=== PATIENT | male | born 1980 | race Caucasian/White ===

== ENCOUNTER 2017-10-29 12:23 | Inpatient (IN) | payer OTHER ==
[2017-10-29 13:09] VITALS: BMI 51.7
--- NOTE | 2017-10-29 15:04 | HP ---
CIWA Score - CIWA Score Nausea/Vomitin-Mild Nausea/No Vomiting Muscle Tremors: 4-Moderate,w/Arms Extend Anxiety: 3 Agitation: 2 Paroxysmal Sweats: 1-Minimal Palms Moist Orientation: 0-Oriented Tacttile Disturbances: 1-Very Mild Itch/Numbness Auditory Disturbances: 0-None Visual Disturbances: 0-None Headache: 0-None Present CIWA-Ar Total Score: 12 Admission ROS BHS - HPI Chief Complaint: withdrawal sx banzo Allergies/Adverse Reactions: Allergies Allergy/AdvReac Type Severity Reaction Status Date / Time No Known Allergies Allergy Verified 10/29/17 15:20 History of Present Illness: 37 years old male with long history of benzo nicotine dependence has chf, left upper and lower tooth removed 10/28/17 asthma copd and depression is admitted to detox Exam Limitations: No Limitations - Ebola screening Have you traveled outside of the country in the last 21 days: No Have you had contact with anyone from an Ebola affected area: No Have you been sick,other than usual withdrawal symptoms: No Do you have a fever: No - Review of Systems Constitutional: Changes in sleep, Weight Stable EENT: reports: No Symptoms Reported Respiratory: reports: SOB with Exertion, Productive cough Cardiac: reports: No Symptoms Reported GI: reports: Nausea, Poor Fluid Intake, Abdominal cramping : reports: No Symptoms Reported Musculoskeletal: reports: Back Pain, Joint Pain, Muscle Pain, Neck Pain Integumentary: reports: No Symptoms Reported Neuro: reports: Tremors Endocrine: reports: No Symptoms Reported Hematology: reports: No Symptoms Reported Psychiatric: reports: Judgement Intact, Orientated x3, Depressed Other Systems: Reviewed and Negative Patient History - Patient Medical History Hx Anemia: No Hx Asthma: Yes Hx Chronic Obstructive Pulmonary Disease (COPD): Yes Hx Cancer: No Hx Cardiac Disorders: No Hx Congestive Heart Failure: Yes Hx Hypertension: No Hx Hypercholesterolemia: No Hx Pacemaker: No HX Cerebrovascular Accident: No Hx Seizures: No Hx Dementia: No Hx Diabetes: No Hx Gastrointestinal Disorders: No Hx Liver Disease: No Hx Genitourinary Disorders: No Hx Sexually Transmitted Disorders: No Hx Renal Disease (ESRD): No Hx Thyroid Disease: No Hx Human Immunodeficiency Virus (HIV): No Hx Hepatitis C: No Hx Depression: No Hx Suicide Attempt: No Hx Bipolar Disorder: Yes Hx Schizophrenia: No - Patient Surgical History Past Surgical History: Yes Hx Neurologic Surgery: No Hx Cataract Extraction: No Hx Cardiac Surgery: No Hx Lung Surgery: No Hx Breast Surgery: No Hx Breast Biopsy: No Hx Abdominal Surgery: No Hx Appendectomy: No Hx Cholecystectomy: No Hx Genitourinary Surgery: No Hx Orthopedic Surgery: Yes (left ) Anesthesia Reaction: No - PPD History Previous Implant?: Yes Documented Results: Negative w/o proof Implanted On Prior [facility] Admission?: No PPD to be Administered?: Yes - Smoking Cessation Smoking history: Current every day smoker Have you smoked in the past 12 months: Yes Aproximately how many cigarettes per day: 20 Cigars Per Day: 0 Hx Chewing Tobacco Use: No Initiated information on smoking cessation: Yes 'Breaking Loose' booklet given: 10/29/17 - Substance & Tx. History Hx Alcohol Use: No Hx Substance Use: Yes Substance Use Type: Opiates, Tranquilizers Hx Substance Use Treatment: Yes (2016 [facility]) Family Disease History - Family Disease History Family Disease History: Respiratory: Father Other Family History: only one in [place] Admission Physical Exam S - Vital Signs Vital Signs: Vital Signs - 24 hr 10/29/17 12:58 Temperature 98.1 F Pulse Rate 84 Respiratory 18 Rate Blood Pressure 139/76 - Physical General Appearance: Yes: Appropriately Dressed, Mild Distress, Obese, Tremorous , Irritable, Sweating, Anxious HEENTM: Yes: Hearing grossly Normal, Normocephalic, Normal Voice Respiratory: Yes: Chest Non-Tender, No Respiratory Distress, No Accessory Muscle Use, Wheezing, Hyperresonant, Inspiration Neck: Yes: Supple, Trachea in good position Breast: Yes: Breasts Symetrical, No Discharge Cardiology: Yes: Regular Rhythm, Regular Rate, S1, S2 Abdominal: Yes: Normal Bowel Sounds, Non Tender, Flat Genitourinary: Yes: Within Normal Limits Back: Yes: Normal Inspection Musculoskeletal: Yes: full range of Motion, Gait Steady, Back pain, Muscle Pain Extremities: Yes: Normal Inspection, Normal Range of Motion, Non-Tender, Tremors Neurological: Yes: Fully Oriented, Alert, Motor Strength 5/5, Normal Response, Depressed Affect Integumentary: Yes: Warm Lymphatic: Yes: Within Normal Limits - Diagnostic (1) Sedative, hypnotic or anxiolytic dependence with withdrawal, uncomplicated Current Visit: Yes Status: Acute (2) Encounter for monitoring Suboxone maintenance therapy Current Visit: Yes Status: Acute Comment: case discussed with suboxon provider begin suboxone 12 mg - 3 mg 10/30/17 (3) CHF (congestive heart failure) Current Visit: Yes Status: Chronic Qualifiers: Heart failure type: other Qualified Code(s): I50.9 - Heart failure, unspecified (4) Asthma Current Visit: Yes Status: Chronic Qualifiers: Asthma severity: mild Asthma persistence: intermittent Asthma complication type: with status asthmaticus Qualified Code(s): J45.22 - Mild intermittent asthma with status asthmaticus (5) COPD (chronic obstructive pulmonary disease) Current Visit: Yes Status: Chronic Qualifiers: COPD type: emphysema Emphysema type: other Qualified Code(s): J43.8 - Other emphysema (6) Bipolar II disorder Current Visit: Yes Status: Suspected (7) [place] teeth removed Current Visit: Yes Status: Acute Qualifiers: Tooth loss class: unspecified tooth loss Qualified Code(s): K08.409 - Partial loss of teeth, unspecified cause, unspecified class Comment: left upper and lower tooth removed 10/28/17 Cleared for Admission BHS - Detox or Rehab [facility] Level of Care: Medically Managed Detox Regimen/Protocol: Valium [facility] Breath Alcohol Content Breath Alcohol Content: 0 Urine Drug Screen - Control Is Test Valid: Yes - Results Drug Screen Negative: No Urine Drug Screen Results: OPI-Opiates, BZO-Benzodiazepines
[2017-10-29] MEDS ORDERED: guaiFENesin/D-METHORPHAN HB 10 ML UNIT-DOSE CUPS PO PRN (15:32)
[2017-10-29] MEDS ORDERED: P-EPHED 60MG/TRIPROLIDI 2.5MG TABLET PO PRN (15:32)
[2017-10-29] MEDS ORDERED: LOPERAMIDE HCL 2 MG CAPSULE PO PRN (15:32)
[2017-10-29] MEDS ORDERED: MAGNESIUM HYDROX 2400MG/30ML ORAL SUSPENSION 30 ML CUP PO PRN (15:32)
[2017-10-29] MEDS ORDERED: NICOTINE POLACRILEX 4 MG GUM BC PRN (15:32)
[2017-10-29] MEDS ORDERED: MAGNESIUM CITRATE 300 ML BOTTLE PO PRN (15:32)
[2017-10-29] MEDS ORDERED: MENTHOL/PHENOL 1 EACH UD MM PRN (15:32)
[2017-10-29] MEDS ORDERED: ACETAMINOPHEN 325 MG TABLET (FP) PO PRN (15:32)
[2017-10-29] MEDS ORDERED: MAG HYDROX/AL HYDROX/SIMETH 30 ML UNIT-DOSE CUP PO PRN (15:32)
[2017-10-29] MEDS ORDERED: ALBUTEROL SO4 18 GM HFA INHALER IH PRN (15:36)
[2017-10-29] MEDS ORDERED: diazePAM 5 MG TABLET PO ONE (16:45)
[2017-10-29] MEDS: NICOTINE 21 MG/24 HOURS TOPICAL PATCH TD SCH (17:24)
[2017-10-29 18:26] LABS: HEMATOCRIT 40.8 % (35.4-49); HEMOGLOBIN 13.6 GM/dL (11.7-16.9); MCH 30.8 pg (25.7-33.7); MCHC 33.3 g/dl (32.0-35.9); MEAN CELL VOLUME 92.5 fl (80-96); MEAN PLT VOLUME 9.3 fl (7.5-11.1); PLATELET COUNT 341 K/MM3 (134-434); RBC 4.41 M/mm3 (4.00-5.60); RDW 14.3 % (11.9-15.9); WHITE BLOOD COUNT 7.7 K/mm3 (4.0-10.0)
[2017-10-29 18:41] LABS: ALBUMIN 3.7 g/dl (3.4-5.0); ALK PHOS 80 U/L (45-117); ANION GAP 4 (8-16); BILIRUBIN,TOTAL 0.2 mg/dL (0.2-1.0); BLOOD UREA NITROGEN 20 mg/dL (7-18); CALCIUM 9.1 mg/dL (8.5-10.1); CHLORIDE 104 mmol/L (98-107); CO2 33 mmol/L (21-32); GLUCOSE,RANDOM 102 mg/dL (74-106); POTASSIUM 4.2 mmol/L (3.5-5.1); SGOT/AST 15 U/L (15-37); SODIUM 141 mmol/L (136-145)
[2017-10-29 18:42] LABS: CREATININE 0.9 mg/dL (0.7-1.3); SGPT/ALT 25 U/L (12-78); TOT PROT 7.4 g/dl (6.4-8.2)
[2017-10-29] MEDS ORDERED: MELATONIN 5 MG TABLETS PO PRN (22:00)
[2017-10-29] MEDS: GABAPENTIN 400 MG CAPSULE (FP) PO SCH (22:27)
[2017-10-29] MEDS: diazePAM 5 MG TABLET PO SCH (22:27)
[2017-10-29] MEDS: MONTELUKAST NA 10 MG TABLET PO SCH (22:27)
[2017-10-29] MEDS: BUDESONIDE/FORMETEROL FUMARATE 80/4.5 mcg INHALER IH SCH (22:27)
[2017-10-29] MEDS: THIAMINE HCL 100 MG TABLET (FP) PO SCH (22:27)
[2017-10-29] MEDS: IBUPROFEN 400 MG TABLET (FP) PO SCH (22:28)
[2017-10-30] MEDS: diazePAM 5 MG TABLET PO SCH ×3 (05:43→22:30)
[2017-10-30] MEDS: IBUPROFEN 400 MG TABLET (FP) PO SCH ×3 (05:44→22:30)
--- NOTE | 2017-10-30 09:42 | CONSULT ---
[facility] Psychiatric Consult - Data Date of interview: 10/30/17 Admission source: [facility] Identifying data: Patient is a 37 year old single male, father of two, unemployed (not receiving financial assistance), and currently lives with cousin. This is patient's first admission to [facility]. Pt. admitted to for opioid and benzodiazepine dependence. Substance Abuse History: Following information confirmed with Mr. Newberry: Smoking Cessation. Smoking history: Current every day smoker. Have you smoked in the past 12 months: Yes. Aproximately how many cigarettes per day: 20. Cigars Per Day: 0. Hx Chewing Tobacco Use: No. Initiated information on smoking cessation: Yes. 'Breaking Loose' booklet given: 10/29/17. - Substance & Tx. History. Hx Alcohol Use: No. Hx Substance Use: Yes. Substance Use Type : Opiates, Tranquilizers. Hx Substance Use Treatment: Yes (2016 [facility]) Medical History: Asthma, CHF, COPD Psychiatric History: Patient reports three psychiatric hospitalization, most recently at [facility] 2 years ago. OPD is provided by the [facility]. Pt. is prescribed abilify 5mg and depakote (unkown dose) BID. Pt. reports nonadherece to the depakote. Self reports diagnosis of depression/bipolar disorder. Pt. denies h/o suicide attempt. Physical/Sexual Abuse/Trauma History: Denies. Mental Status Exam - Mental Status Exam Alert and Oriented to: Time, Place, Person Cognitive Function: Good Patient Appearance: Well Groomed Mood: Euthymic Affect: Mood Congruent Patient Behavior: Fatigued, Cooperative Speech Pattern: Appropriate Voice Loudness: Moderately Soft/Quiet Thought Process: Goal Oriented Thought Disorder: Not Present Hallucinations: Denies Suicidal Ideation: Denies Homicidal Ideation: Denies Insight/Judgement: Poor Sleep: Fair Appetite: Fair Muscle strength/Tone: Normal Gait/Station: Normal Psychiatric Findings - Problem List ([place] 1, 2,3) (1) Opioid dependence Current Visit: Yes Status: Acute (2) Substance induced mood disorder Current Visit: Yes Status: Acute (3) Sedative, hypnotic or anxiolytic dependence with withdrawal, uncomplicated Current Visit: Yes Status: Acute (4) Encounter for monitoring Suboxone maintenance therapy Current Visit: Yes Status: Acute Comment: case discussed with suboxon provider begin suboxone 12 mg - 3 mg 10/30/17 - Initial Treatment Plan Initial Treatment Plan: Psychoeducation provided. Detoxification in progress. Abilify 5mg PO daily. Benefits and side effects discussed. Verbal consent given. Will continue to monitor.
[2017-10-30] MEDS ORDERED: BUPRENORPHINE HCL/NALOXONE 12 MG-3 MG SL FILM PACKET SL SCH (10:00)
[2017-10-30] MEDS: GABAPENTIN 400 MG CAPSULE (FP) PO SCH ×2 (10:11→22:31)
[2017-10-30] MEDS: BUDESONIDE/FORMETEROL FUMARATE 80/4.5 mcg INHALER IH SCH ×2 (10:11→22:30)
[2017-10-30] MEDS: PRENATAL VITAMINS W/ FOLIC ACID TABLET (FP) PO SCH (10:11)
[2017-10-30] MEDS: FUROSEMIDE 40 MG TABLET (FP) PO SCH (10:11)
[2017-10-30] MEDS: diazePAM 5 MG TABLET PO PRN (10:11)
[2017-10-30] MEDS: BUPRENORPHINE HCL/NALOXONE 12 MG-3 MG SL FILM PACKET SL SCH (10:11)
[2017-10-30] MEDS: NICOTINE 21 MG/24 HOURS TOPICAL PATCH TD SCH (10:12)
--- NOTE | 2017-10-30 11:32 | EKG ---
Test Reason : Blood Pressure : / mmHG Vent. Rate : 078 BPM Atrial Rate : 078 BPM P-R Int : 144 ms QRS Dur : 080 ms QT Int : 382 ms P-R-T Axes : 052 026 035 degrees QTc Int : 435 ms NORMAL SINUS RHYTHM NORMAL ECG NO PREVIOUS ECGS AVAILABLE Confirmed by JOSEMANUEL CALDERÓN MD ([id number]) on 10/30/2017 11:31:38 AM Referred By: Confirmed By:JOSEMANUEL CALDERÓN MD
[2017-10-30] MEDS: ARIPiprazole 5 MG TABLET (FP) PO SCH (12:08)
--- NOTE | 2017-10-30 12:48 | PN ---
S CIWA - CIWA Score Nausea/Vomitin-No Nausea/No Vomiting Muscle Tremors: 4-Moderate,w/Arms Extend Anxiety: 2 Agitation: 3 Paroxysmal Sweats: 3 Orientation: 0-Oriented Tacttile Disturbances: 0-None Auditory Disturbances: 2-Mild Harshness/Frighten Visual Disturbances: 3-Moderate Sensitivity Headache: 0-None Present CIWA-Ar Total Score: 17 BHS Progress Note (SOAP) Subjective: Tremors, Sweating, Body Aches, Fatigue. Objective: PATIENT A & O X 3. NO ACUTE DISTRESS. 10/30/17 12:47 Vital Signs Temperature 97.4 F L 10/30/17 09:22 Pulse Rate 86 10/30/17 09:22 Respiratory Rate 20 10/30/17 09:22 Blood Pressure 116/76 10/30/17 09:22 O2 Sat by Pulse Oximetry (%) Laboratory Tests 10/29/17 10/29/17 10/29/17 15:00 15:00 15:00 WBC 7.7 RBC 4.41 Hgb 13.6 Hct 40.8 MCV 92.5 MCH 30.8 MCHC 33.3 RDW 14.3 Plt Count 341 MPV 9.3 Sodium 141 Potassium 4.2 Chloride 104 Carbon Dioxide 33 H Anion Gap 4 L BUN 20 H Creatinine 0.9 Creat Clearance w eGFR > 60 Random Glucose 102 Calcium 9.1 Total Bilirubin 0.2 AST 15 ALT 25 Alkaline Phosphatase 80 Total Protein 7.4 Albumin 3.7 Valproic Acid 49.756 L RPR Titer 10/29/17 15:00 WBC RBC Hgb Hct MCV MCH MCHC RDW Plt Count MPV Sodium Potassium Chloride Carbon Dioxide Anion Gap BUN Creatinine Creat Clearance w eGFR Random Glucose Calcium Total Bilirubin AST ALT Alkaline Phosphatase Total Protein Albumin Valproic Acid RPR Titer Nonreactive LABS NOTED. UA RESULTS PENDING. 10/30/17 12:50 Assessment: 10/30/17 12:47 WITHDRAWAL SYMPTOMS. Plan: CONTINUE DETOX. INCREASE DAILY PO FLUID INTAKE.
[2017-10-30] MEDS: THIAMINE HCL 100 MG TABLET (FP) PO SCH (22:29)
[2017-10-30] MEDS: MONTELUKAST NA 10 MG TABLET PO SCH (22:31)
[2017-10-31] MEDS: diazePAM 5 MG TABLET PO PRN (06:03)
[2017-10-31] MEDS: IBUPROFEN 400 MG TABLET (FP) PO SCH ×3 (06:04→22:27)
[2017-10-31] MEDS: NICOTINE 21 MG/24 HOURS TOPICAL PATCH TD SCH (10:14)
[2017-10-31] MEDS: BUPRENORPHINE HCL/NALOXONE 12 MG-3 MG SL FILM PACKET SL SCH (10:14)
[2017-10-31] MEDS: PRENATAL VITAMINS W/ FOLIC ACID TABLET (FP) PO SCH (10:14)
[2017-10-31] MEDS: GABAPENTIN 400 MG CAPSULE (FP) PO SCH ×2 (10:14→22:27)
[2017-10-31] MEDS: ARIPiprazole 5 MG TABLET (FP) PO SCH (10:14)
[2017-10-31] MEDS: diazePAM 5 MG TABLET PO SCH ×2 (10:14→22:27)
[2017-10-31] MEDS: BUDESONIDE/FORMETEROL FUMARATE 80/4.5 mcg INHALER IH SCH ×2 (10:14→22:28)
[2017-10-31] MEDS: FUROSEMIDE 40 MG TABLET (FP) PO SCH (10:14)
--- NOTE | 2017-10-31 12:47 | PN ---
[facility] CIWA - CIWA Score Nausea/Vomitin-No Nausea/No Vomiting Muscle Tremors: 3 Anxiety: 3 Agitation: 2 Paroxysmal Sweats: 3 Orientation: 0-Oriented Tacttile Disturbances: 2-Mild Itch/Numbness/Burn Auditory Disturbances: 2-Mild Harshness/Frighten Visual Disturbances: 0-None Headache: 0-None Present CIWA-Ar Total Score: 15 BHS Progress Note (SOAP) Subjective: Tremors, Sweating, Body Aches, Fatigue. Objective: PATIENT A & O X 3, OBSERVED AMBULATING ON UNIT. NO ACUTE DISTRESS. 10/31/17 12:48 Vital Signs Temperature 96.2 F L 10/31/17 09:28 Pulse Rate 75 10/31/17 09:28 Respiratory Rate 18 10/31/17 09:28 Blood Pressure 116/72 10/31/17 09:28 O2 Sat by Pulse Oximetry (%) Laboratory Tests 10/29/17 10/29/17 10/29/17 15:00 15:00 15:00 WBC 7.7 RBC 4.41 Hgb 13.6 Hct 40.8 MCV 92.5 MCH 30.8 MCHC 33.3 RDW 14.3 Plt Count 341 MPV 9.3 Sodium 141 Potassium 4.2 Chloride 104 Carbon Dioxide 33 H Anion Gap 4 L BUN 20 H Creatinine 0.9 Creat Clearance w eGFR > 60 Random Glucose 102 Calcium 9.1 Total Bilirubin 0.2 AST 15 ALT 25 Alkaline Phosphatase 80 Total Protein 7.4 Albumin 3.7 Urine Color Urine Appearance Urine pH Ur Specific [place] Urine Protein Urine Glucose (UA) Urine Ketones Urine Blood Urine Nitrite Urine Bilirubin Urine Urobilinogen Ur Leukocyte Esterase Valproic Acid 49.756 L RPR Titer 10/29/17 10/29/17 15:00 15:00 WBC RBC Hgb Hct MCV MCH MCHC RDW Plt Count MPV Sodium Potassium Chloride Carbon Dioxide Anion Gap BUN Creatinine Creat Clearance w eGFR Random Glucose Calcium Total Bilirubin AST ALT Alkaline Phosphatase Total Protein Albumin Urine Color Cancelled Urine Appearance Cancelled Urine pH Cancelled Ur Specific [place] Cancelled Urine Protein Cancelled Urine Glucose (UA) Cancelled Urine Ketones Cancelled Urine Blood Cancelled Urine Nitrite Cancelled Urine Bilirubin Cancelled Urine Urobilinogen Cancelled Ur Leukocyte Esterase Cancelled Valproic Acid RPR Titer Nonreactive LABS NOTED. Assessment: 10/31/17 12:48 WITHDRAWAL SYMPTOMS. Plan: CONTINUE DETOX. INCREASE DAILY PO FLUID INTAKE.
[2017-10-31 18:30] LABS: URINE APPEARANCE CLEAR; URINE BILIRUBIN NEGATIVE (<2.0 mg/dL); URINE COLOR STRAW; URINE GLUCOSE (UA) NEGATIVE (NEGATIVE); URINE KETONE NEGATIVE (NEGATIVE); URINE LEUK ESTERASE NEGATIVE (NEGATIVE); URINE NITRITE NEGATIVE (NEGATIVE); URINE PROTEIN NEGATIVE (NEGATIVE); URINE UROBILINOGEN NEGATIVE mg/dL (0.2-1.0)
[2017-10-31] MEDS: MONTELUKAST NA 10 MG TABLET PO SCH (22:27)
[2017-10-31] MEDS: THIAMINE HCL 100 MG TABLET (FP) PO SCH (22:28)
[2017-11-01] MEDS: IBUPROFEN 400 MG TABLET (FP) PO SCH ×3 (06:18→22:28)
[2017-11-01] MEDS: BUDESONIDE/FORMETEROL FUMARATE 80/4.5 mcg INHALER IH SCH ×2 (10:34→22:29)
[2017-11-01] MEDS: GABAPENTIN 400 MG CAPSULE (FP) PO SCH ×2 (10:34→22:28)
[2017-11-01] MEDS: PRENATAL VITAMINS W/ FOLIC ACID TABLET (FP) PO SCH (10:34)
[2017-11-01] MEDS: ARIPiprazole 5 MG TABLET (FP) PO SCH (10:34)
[2017-11-01] MEDS: FUROSEMIDE 40 MG TABLET (FP) PO SCH (10:34)
[2017-11-01] MEDS: BUPRENORPHINE HCL/NALOXONE 12 MG-3 MG SL FILM PACKET SL SCH (10:35)
[2017-11-01] MEDS: NICOTINE 21 MG/24 HOURS TOPICAL PATCH TD SCH (10:35)
[2017-11-01] MEDS: diazePAM 5 MG TABLET PO SCH ×2 (10:35→22:28)
[2017-11-01] MEDS ORDERED: LIDOCAINE 5% TOPICAL PATCH TP SCH (11:00)
[2017-11-01] MEDS ORDERED: CYCLOBENZAPRINE HCL 10 MG TABLET (FP) PO PRN (11:52)
--- NOTE | 2017-11-01 16:36 | PN ---
BHS Progress Note (SOAP) Subjective: Sweating, Body Aches, Fatigue. Objective: PATIENT A & O X 3, OBSERVED AMBULATING ON UNIT. NO ACUTE DISTRESS. 11/01/17 16:35 Vital Signs Temperature 98.3 F 11/01/17 13:26 Pulse Rate 70 11/01/17 13:26 Respiratory Rate 20 11/01/17 13:26 Blood Pressure 103/54 11/01/17 13:26 O2 Sat by Pulse Oximetry (%) Laboratory Tests 10/29/17 10/29/17 10/29/17 15:00 15:00 15:00 WBC 7.7 RBC 4.41 Hgb 13.6 Hct 40.8 MCV 92.5 MCH 30.8 MCHC 33.3 RDW 14.3 Plt Count 341 MPV 9.3 Sodium 141 Potassium 4.2 Chloride 104 Carbon Dioxide 33 H Anion Gap 4 L BUN 20 H Creatinine 0.9 Creat Clearance w eGFR > 60 Random Glucose 102 Calcium 9.1 Total Bilirubin 0.2 AST 15 ALT 25 Alkaline Phosphatase 80 Total Protein 7.4 Albumin 3.7 Urine Color Urine Appearance Urine pH Ur Specific [place] Urine Protein Urine Glucose (UA) Urine Ketones Urine Blood Urine Nitrite Urine Bilirubin Urine Urobilinogen Ur Leukocyte Esterase Valproic Acid 49.756 L RPR Titer 10/29/17 10/29/17 10/31/17 15:00 15:00 14:20 WBC RBC Hgb Hct MCV MCH MCHC RDW Plt Count MPV Sodium Potassium Chloride Carbon Dioxide Anion Gap BUN Creatinine Creat Clearance w eGFR Random Glucose Calcium Total Bilirubin AST ALT Alkaline Phosphatase Total Protein Albumin Urine Color Cancelled Straw Urine Appearance Cancelled Clear Urine pH Cancelled 5.0 Ur Specific [place] Cancelled 1.008 Urine Protein Cancelled Negative Urine Glucose (UA) Cancelled Negative Urine Ketones Cancelled Negative Urine Blood Cancelled Negative Urine Nitrite Cancelled Negative Urine Bilirubin Cancelled Negative Urine Urobilinogen Cancelled Negative Ur Leukocyte Esterase Cancelled Negative Valproic Acid RPR Titer Nonreactive LABS NOTED. Assessment: 11/01/17 16:35 WITHDRAWAL SYMPTOMS. Plan: CONTINUE DETOX. INCREASE DAILY PO FLUID INTAKE.
[2017-11-01] MEDS ORDERED: LIDOCAINE PATCH REMOVAL MC SCH (22:00)
[2017-11-01] MEDS: MONTELUKAST NA 10 MG TABLET PO SCH (22:28)
[2017-11-01] MEDS: THIAMINE HCL 100 MG TABLET (FP) PO SCH (22:29)
[2017-11-02] MEDS: IBUPROFEN 400 MG TABLET (FP) PO SCH (05:56)
[2017-11-02 09:34] VITALS: BP 107/69; PULSE 75; TEMP 97.9
[2017-11-02] MEDS: BUPRENORPHINE HCL/NALOXONE 12 MG-3 MG SL FILM PACKET SL SCH (09:36)
[2017-11-02] MEDS: BUDESONIDE/FORMETEROL FUMARATE 80/4.5 mcg INHALER IH SCH (09:36)
[2017-11-02] MEDS: ARIPiprazole 5 MG TABLET (FP) PO SCH (09:36)
[2017-11-02] MEDS: PRENATAL VITAMINS W/ FOLIC ACID TABLET (FP) PO SCH (09:36)
[2017-11-02] MEDS: GABAPENTIN 400 MG CAPSULE (FP) PO SCH (09:36)
[2017-11-02] MEDS: FUROSEMIDE 40 MG TABLET (FP) PO SCH (09:36)
[2017-11-02] MEDS ORDERED: diazePAM 5 MG TABLET PO SCH (10:00)
--- NOTE | 2017-11-02 15:33 | DS ---
[facility] Detox Discharge Summary Admission Date: 10/29/17 Discharge Date: 11/02/17 - History Additional Comments: DETOX COMPLETED. ALERT O X 3. PT STATES HE WILL BE FOLLOWING [facility] AT WITH PMD/ [facility] [facility]. HAS OWN MEDS AT THE RESIDENCE. Pertinent Past History: PLEASE SEE DX BELOW - Physical Exam Results Vital Signs: Vital Signs Temperature 97.9 F 11/02/17 09:33 Pulse Rate 75 11/02/17 09:33 Respiratory Rate 18 11/02/17 09:33 Blood Pressure 107/69 11/02/17 09:33 O2 Sat by Pulse Oximetry (%) Pertinent Admission Physical Exam Findings: WITHDRAWAL SX Vital Signs 11/02/17 09:33 Temperature 97.9 F Pulse Rate 75 Respiratory 18 Rate Blood Pressure 107/69 Laboratory Tests 10/29/17 10/29/17 10/29/17 15:00 15:00 15:00 WBC 7.7 RBC 4.41 Hgb 13.6 Hct 40.8 MCV 92.5 MCH 30.8 MCHC 33.3 RDW 14.3 Plt Count 341 MPV 9.3 Sodium 141 Potassium 4.2 Chloride 104 Carbon Dioxide 33 H Anion Gap 4 L BUN 20 H Creatinine 0.9 Creat Clearance w eGFR > 60 Random Glucose 102 Calcium 9.1 Total Bilirubin 0.2 AST 15 ALT 25 Alkaline Phosphatase 80 Total Protein 7.4 Albumin 3.7 Urine Color Urine Appearance Urine pH Ur Specific [place] Urine Protein Urine Glucose (UA) Urine Ketones Urine Blood Urine Nitrite Urine Bilirubin Urine Urobilinogen Ur Leukocyte Esterase Valproic Acid 49.756 L RPR Titer 10/29/17 10/29/17 10/31/17 15:00 15:00 14:20 WBC RBC Hgb Hct MCV MCH MCHC RDW Plt Count MPV Sodium Potassium Chloride Carbon Dioxide Anion Gap BUN Creatinine Creat Clearance w eGFR Random Glucose Calcium Total Bilirubin AST ALT Alkaline Phosphatase Total Protein Albumin Urine Color Cancelled Straw Urine Appearance Cancelled Clear Urine pH Cancelled 5.0 Ur Specific [place] Cancelled 1.008 Urine Protein Cancelled Negative Urine Glucose (UA) Cancelled Negative Urine Ketones Cancelled Negative Urine Blood Cancelled Negative Urine Nitrite Cancelled Negative Urine Bilirubin Cancelled Negative Urine Urobilinogen Cancelled Negative Ur Leukocyte Esterase Cancelled Negative Valproic Acid RPR Titer Nonreactive - Treatment Hospital Course: Detox Protocol Followed - Medication Discharge Medications: Ambulatory Orders Albuterol Sulfate Inhaler - [Ventolin Hfa Inhaler -] 2 inh PO Q4H PRN 10/29/17 Aripiprazole [Abilify -] 15 mg PO DAILY 10/29/17 Budesonide/Formeterol Fumarate [SYMBICORT 80/4.5mcg -] 1 inh PO BID 10/29/17 Buprenorphine HCl/Naloxone HCl [Suboxone 12 mg-3 mg Sl Film] 1 each SL DAILY 08/17 Divalproex Sodium 500 mg PO BID 10/29/17 Furosemide [Lasix -] 40 mg PO DAILY 10/29/17 Gabapentin [Neurontin -] 400 mg PO BID 10/29/17 Ibuprofen 800 mg PO TID 10/29/17 Montelukast Sodium [Singulair] 10 mg PO HS 10/29/17 - AMA Did Patient Leave Against Medical Advice: No
== END 2017-11-02 09:45 | disposition home or self-care (01) | DRG 773 ==
LOC: YASAS 12:23 → Y3N 16:31
PROVIDERS: ADMIT Internal Medicine; ATTEND Internal Medicine
PROC: HZ2ZZZZ Detoxification Services for Substance Abuse Treatment (ICD-10-PCS; principal; 2017-10-29)
DX: F11.20 Opioid dependence, uncomplicated (principal); F13.230 Sedative, hypnotic or anxiolytic dependence with withdrawal, uncomplicated; F19.24 Other psychoactive substance dependence with psychoactive substance-induced mood disorder; F31.81 Bipolar II disorder; I50.9 Heart failure, unspecified; J43.8 Other emphysema; J45.22 Mild intermittent asthma with status asthmaticus; K08.499 Partial loss of teeth due to other specified cause, unspecified class; Z51.81 Encounter for therapeutic drug level monitoring
CPT/HCPCS: 36415; 80053; 80164; 81003; 85027; 86593; 93005; 93010

== ENCOUNTER 2021-09-03 12:01 | Inpatient (IN) | payer OTHER ==
[2021-09-03] MEDS ORDERED: ONDANSETRON *ODT* 4 MG TABLET SL PRN (14:13)
[2021-09-03] MEDS ORDERED: MAG HYDROX/AL HYDROX/SIMETH 30 ML UNIT-DOSE CUP PO PRN (14:13)
[2021-09-03] MEDS ORDERED: MAGNESIUM CITRATE 300 ML BOTTLE PO PRN (14:13)
[2021-09-03] MEDS ORDERED: MAGNESIUM HYDROX 2400MG/30ML ORAL SUSPENSION 30 ML CUP PO PRN (14:13)
[2021-09-03] MEDS ORDERED: ACETAMINOPHEN 325 MG TABLET (FP) PO PRN (14:13)
[2021-09-03] MEDS ORDERED: diazePAM 5 MG TABLET PO PRN (14:13)
[2021-09-03] MEDS ORDERED: MENTHOL/PHENOL 1 EACH UD MM PRN (14:13)
[2021-09-03] MEDS ORDERED: cloNIDine HCL 0.1 MG TABLET PO ONE (14:13)
[2021-09-03] MEDS ORDERED: NALOXONE (NARCAN) HCL 4 MG/0.1 ML SPRAY NS PRN (14:13)
[2021-09-03] MEDS ORDERED: BUPRENORPHINE HCL 150 MCG, BUPRENORPHINE HCL 75 MCG BC ONE (14:13)
[2021-09-03] MEDS ORDERED: LOPERAMIDE HCL 2 MG CAPSULE PO PRN (14:13)
[2021-09-03] MEDS ORDERED: BISMUTH SUBSALICYLATE 262 MG/15 ML BTL PO PRN (14:13)
[2021-09-03] MEDS ORDERED: ALBUTEROL SO4 HFA INHALER IH PRN (14:19)
[2021-09-03 15:05] VITALS: BMI 44.6
[2021-09-03] MEDS ORDERED: BUPRENORPHINE HCL 150 MCG FILM BC ONE (15:12)
[2021-09-03] MEDS ORDERED: BUPRENORPHINE HCL 75 MCG FILM BC ONE (15:13)
[2021-09-03] MEDS: diazePAM 5 MG TABLET PO PRN (16:56)
[2021-09-03] MEDS: IBUPROFEN 400 MG TABLET (FP) PO PRN (16:59)
[2021-09-03] MEDS: NICOTINE 10 MG CARTRIDGE (INHALER) IH PRN (17:02)
[2021-09-03] MEDS: diazePAM 5 MG TABLET PO SCH ×2 (17:24→23:42)
[2021-09-03] MEDS ORDERED: cloNIDine HCL 0.1 MG TABLET PO PRN (18:14)
[2021-09-03] MEDS: hydrOXYzine PAMOATE 25 MG CAPSULE (FP) PO SCH ×2 (18:40→23:42)
[2021-09-03] MEDS: MELATONIN 5 MG TABLETS PO SCH (23:41)
[2021-09-03] MEDS: THIAMINE HCL 100 MG TABLET (FP) PO SCH (23:42)
[2021-09-03] MEDS: MONTELUKAST NA 10 MG TABLET PO SCH (23:42)
[2021-09-04] MEDS ORDERED: BUPRENORPHINE HCL 75 MCG FILM BC ONE ×2 (04:31→17:08)
[2021-09-04] MEDS ORDERED: BUPRENORPHINE HCL 150 MCG FILM BC ONE ×2 (04:31→17:08)
[2021-09-04] MEDS: diazePAM 5 MG TABLET PO SCH ×4 (05:48→22:28)
[2021-09-04] MEDS: hydrOXYzine PAMOATE 25 MG CAPSULE (FP) PO SCH ×5 (05:48→22:28)
[2021-09-04] MEDS: BUPRENORPHINE HCL 150 MCG, BUPRENORPHINE HCL 75 MCG BC SCH ×2 (05:49→17:45)
[2021-09-04] MEDS: METHOCARBAMOL 500 MG TABLET PO PRN ×2 (08:45→17:47)
[2021-09-04] MEDS: ACETAMINOPHEN 325 MG TABLET (FP) PO PRN (08:46)
[2021-09-04] MEDS: PRENATAL VITAMINS W/ FOLIC ACID TABLET (FP) PO SCH (10:10)
[2021-09-04] MEDS: BUDESONIDE/FORMETEROL FUMARATE 80/4.5 mcg INHALER IH PRN (10:12)
[2021-09-04 10:48] LABS: ALBUMIN 3.2 g/dl (3.4-5.0); BLOOD UREA NITROGEN 9.1 mg/dL (7-18); CALCIUM 8.7 mg/dL (8.5-10.1)
[2021-09-04 10:49] LABS: HEMATOCRIT 35.3 % (35.4-49); HEMOGLOBIN 11.8 GM/dL (11.7-16.9); MCH 30.1 pg (25.7-33.7); MCHC 33.4 g/dl (32.0-35.9); MEAN CELL VOLUME 90.1 fl (80-96); PLATELET COUNT 257 10^3/uL (134-434); RBC 3.91 M/mm3 (4.00-5.60); RDW 13.3 % (11.9-15.9); WHITE BLOOD COUNT 8.5 K/mm3 (4.0-10.0)
[2021-09-04 10:51] LABS: CREATININE 0.6 mg/dL (0.55-1.3)
[2021-09-04 10:53] LABS: BILIRUBIN,TOTAL 0.5 mg/dL (0.2-1); TOT PROT 6.5 g/dl (6.4-8.2)
[2021-09-04] MEDS ORDERED: BACLOFEN 10 MG TABLET (FP) PO ONE (11:20)
[2021-09-04] MEDS: guaiFENesin 600 MG TABLET.ER (FP) PO SCH ×2 (12:24→22:28)
[2021-09-04] MEDS ORDERED: ONDANSETRON *ODT* 4 MG TABLET SL ONE (12:45)
[2021-09-04] MEDS ORDERED: LORATADINE 10 MG TABLET PO ONE (12:45)
[2021-09-04] MEDS: MELATONIN 5 MG TABLETS PO SCH (22:28)
[2021-09-04] MEDS: THIAMINE HCL 100 MG TABLET (FP) PO SCH (22:28)
[2021-09-04] MEDS: MONTELUKAST NA 10 MG TABLET PO SCH (22:28)
[2021-09-04] MEDS: IBUPROFEN 400 MG TABLET (FP) PO PRN (22:31)
[2021-09-05] MEDS: hydrOXYzine PAMOATE 25 MG CAPSULE (FP) PO SCH ×5 (06:07→22:26)
[2021-09-05 06:08] LABS: SARS-CoV-2 NAA Not Detected (Not Detected)
[2021-09-05] MEDS: diazePAM 5 MG TABLET PO SCH ×3 (06:08→22:26)
[2021-09-05] MEDS: BUPRENORPHINE HCL 450 MCG FILM BC SCH ×2 (06:08→17:50)
[2021-09-05] MEDS: METHOCARBAMOL 500 MG TABLET PO PRN ×2 (10:11→22:27)
[2021-09-05] MEDS: guaiFENesin 600 MG TABLET.ER (FP) PO SCH ×2 (10:11→22:26)
[2021-09-05] MEDS: PRENATAL VITAMINS W/ FOLIC ACID TABLET (FP) PO SCH (10:11)
[2021-09-05] MEDS: NICOTINE 10 MG CARTRIDGE (INHALER) IH PRN (10:12)
[2021-09-05] MEDS: ACETAMINOPHEN 325 MG TABLET (FP) PO PRN (13:53)
[2021-09-05] MEDS: IBUPROFEN 400 MG TABLET (FP) PO PRN (17:54)
[2021-09-05] MEDS: THIAMINE HCL 100 MG TABLET (FP) PO SCH (22:26)
[2021-09-05] MEDS: MELATONIN 5 MG TABLETS PO SCH (22:26)
[2021-09-05] MEDS: MONTELUKAST NA 10 MG TABLET PO SCH (22:26)
[2021-09-06] MEDS: hydrOXYzine PAMOATE 25 MG CAPSULE (FP) PO SCH ×2 (05:31→10:22)
[2021-09-06] MEDS: diazePAM 5 MG TABLET PO SCH ×2 (05:32→17:19)
[2021-09-06] MEDS: BUPRENORPHINE/NALOXONE 4 MG/1 MG FILM PACKET SL SCH ×2 (05:32→17:20)
[2021-09-06] MEDS: PRENATAL VITAMINS W/ FOLIC ACID TABLET (FP) PO SCH (10:20)
[2021-09-06] MEDS: METHOCARBAMOL 500 MG TABLET PO PRN (10:20)
[2021-09-06] MEDS: guaiFENesin 600 MG TABLET.ER (FP) PO SCH ×2 (10:21→22:14)
[2021-09-06] MEDS: IBUPROFEN 400 MG TABLET (FP) PO PRN ×2 (10:21→17:19)
[2021-09-06] MEDS: diazePAM 5 MG TABLET PO PRN (10:21)
[2021-09-06] MEDS: NICOTINE 10 MG CARTRIDGE (INHALER) IH PRN (10:23)
[2021-09-06] MEDS ORDERED: hydrOXYzine PAMOATE 50 MG CAPSULE (FP) PO PRN (10:51)
[2021-09-06] MEDS ORDERED: traZODone HCL 50 MG TABLET (FP) PO SCH (22:00)
[2021-09-06] MEDS: MONTELUKAST NA 10 MG TABLET PO SCH (22:14)
[2021-09-06] MEDS: THIAMINE HCL 100 MG TABLET (FP) PO SCH (22:14)
[2021-09-07] MEDS ORDERED: diazePAM 5 MG TABLET PO ONE (06:00)
[2021-09-07] MEDS ORDERED: BUPRENORPHINE/NALOXONE 8 MG/2 MG FILM PACKET SL ONE (06:00)
[2021-09-07] MEDS: PRENATAL VITAMINS W/ FOLIC ACID TABLET (FP) PO SCH (10:28)
[2021-09-07] MEDS: BUDESONIDE/FORMETEROL FUMARATE 80/4.5 mcg INHALER IH PRN (10:29)
[2021-09-07] MEDS: METHOCARBAMOL 500 MG TABLET PO PRN (10:30)
[2021-09-07] MEDS: guaiFENesin 600 MG TABLET.ER (FP) PO SCH (10:30)
[2021-09-07 12:40] VITALS: BP 111/73; PULSE 90; TEMP 96
== END 2021-09-07 13:15 | disposition other institution (70) | DRG 773 ==
LOC: YASAS 12:01 → Y3N 15:48 → Y6N 15:59
PROVIDERS: ADMIT Allergy & Immunology; ATTEND Allergy & Immunology
PROC: HZ2ZZZZ Detoxification Services for Substance Abuse Treatment (ICD-10-PCS; principal; 2021-09-03)
DX: F11.23 Opioid dependence with withdrawal (principal); F13.230 Sedative, hypnotic or anxiolytic dependence with withdrawal, uncomplicated; F14.20 Cocaine dependence, uncomplicated; F17.210 Nicotine dependence, cigarettes, uncomplicated; F19.280 Other psychoactive substance dependence with psychoactive substance-induced anxiety disorder; F19.282 Other psychoactive substance dependence with psychoactive substance-induced sleep disorder; F31.9 Bipolar disorder, unspecified; G47.00 Insomnia, unspecified; J43.9 Emphysema, unspecified; J45.20 Mild intermittent asthma, uncomplicated; B18.2 Chronic viral hepatitis C; Z56.0 Unemployment, unspecified; Z59.00 Homelessness unspecified
CPT/HCPCS: 36415; 80053; 85027; 86780; C9803; J0475; J0735; Q0162; U0003; U0005

== ENCOUNTER 2021-09-07 13:17 | Inpatient (IN) | payer OTHER ==
[2021-09-07] MEDS ORDERED: MAGNESIUM CITRATE 300 ML BOTTLE PO PRN (14:37)
[2021-09-07] MEDS ORDERED: MAG HYDROX/AL HYDROX/SIMETH 30 ML UNIT-DOSE CUP PO PRN (14:37)
[2021-09-07] MEDS ORDERED: guaiFENesin 200 MG/10 ML 10 ML UNIT-DOSE CUPS PO PRN (14:37)
[2021-09-07] MEDS ORDERED: LOPERAMIDE HCL 2 MG CAPSULE PO PRN (14:37)
[2021-09-07] MEDS ORDERED: ALBUTEROL SO4 HFA INHALER IH PRN (14:39)
[2021-09-07] MEDS: IBUPROFEN 400 MG TABLET (FP) PO PRN (15:17)
[2021-09-07] MEDS: NICOTINE 10 MG CARTRIDGE (INHALER) IH PRN (21:21)
[2021-09-07] MEDS: THIAMINE HCL 100 MG TABLET (FP) PO SCH (21:22)
[2021-09-07] MEDS: traZODone HCL 100 MG TABLET (FP) PO SCH (21:22)
[2021-09-07] MEDS: BUDESONIDE/FORMETEROL FUMARATE 80/4.5 mcg INHALER IH SCH (21:59)
[2021-09-07] MEDS ORDERED: traZODone HCL 50 MG TABLET (FP) PO SCH (22:00)
[2021-09-07] MEDS ORDERED: MELATONIN 5 MG TABLETS PO SCH (22:00)
[2021-09-07] MEDS: MONTELUKAST NA 10 MG TABLET PO SCH (22:20)
[2021-09-08] MEDS: BUPRENORPHINE/NALOXONE 8 MG/2 MG FILM PACKET SL SCH ×2 (06:17→18:06)
[2021-09-08] MEDS: NICOTINE 10 MG CARTRIDGE (INHALER) IH PRN ×2 (10:05→17:19)
[2021-09-08] MEDS: BUDESONIDE/FORMETEROL FUMARATE 80/4.5 mcg INHALER IH SCH ×2 (10:05→21:31)
[2021-09-08] MEDS: PRENATAL VITAMINS W/ FOLIC ACID TABLET (FP) PO SCH (10:05)
[2021-09-08] MEDS: ARIPiprazole 5 MG TABLET PO SCH (10:05)
[2021-09-08] MEDS: IBUPROFEN 400 MG TABLET (FP) PO PRN ×2 (10:06→17:19)
[2021-09-08] MEDS: NICOTINE 7 MG/24 HOURS TOPICAL PATCH TD SCH (10:06)
[2021-09-08] MEDS: MENTHOL/PHENOL 1 EACH UD MM PRN (18:11)
[2021-09-08] MEDS: traZODone HCL 100 MG TABLET (FP) PO SCH (21:31)
[2021-09-08] MEDS: MONTELUKAST NA 10 MG TABLET PO SCH (21:31)
[2021-09-08] MEDS: THIAMINE HCL 100 MG TABLET (FP) PO SCH (21:31)
[2021-09-09] MEDS: IBUPROFEN 400 MG TABLET (FP) PO PRN ×3 (06:34→21:28)
[2021-09-09] MEDS: BUPRENORPHINE/NALOXONE 8 MG/2 MG FILM PACKET SL SCH ×2 (06:35→18:07)
[2021-09-09] MEDS: NICOTINE 10 MG CARTRIDGE (INHALER) IH PRN ×3 (09:51→21:27)
[2021-09-09] MEDS: BUDESONIDE/FORMETEROL FUMARATE 80/4.5 mcg INHALER IH SCH ×2 (09:52→21:27)
[2021-09-09] MEDS: NICOTINE 7 MG/24 HOURS TOPICAL PATCH TD SCH (09:52)
[2021-09-09] MEDS: PRENATAL VITAMINS W/ FOLIC ACID TABLET (FP) PO SCH (09:52)
[2021-09-09] MEDS: ARIPiprazole 5 MG TABLET PO SCH (09:52)
[2021-09-09] MEDS: ACETAMINOPHEN 325 MG TABLET (FP) PO PRN (09:54)
[2021-09-09] MEDS: MENTHOL/PHENOL 1 EACH UD MM PRN ×2 (09:54→21:29)
[2021-09-09] MEDS: THIAMINE HCL 100 MG TABLET (FP) PO SCH (21:29)
[2021-09-09] MEDS: traZODone HCL 100 MG TABLET (FP) PO SCH (21:29)
[2021-09-09] MEDS: MONTELUKAST NA 10 MG TABLET PO SCH (21:29)
[2021-09-10] MEDS: BUPRENORPHINE/NALOXONE 8 MG/2 MG FILM PACKET SL SCH ×2 (06:33→17:16)
[2021-09-10] MEDS: IBUPROFEN 400 MG TABLET (FP) PO PRN ×2 (06:34→13:43)
[2021-09-10] MEDS: MENTHOL/PHENOL 1 EACH UD MM PRN ×2 (06:34→15:24)
[2021-09-10] MEDS: NICOTINE 10 MG CARTRIDGE (INHALER) IH PRN ×2 (07:35→13:43)
[2021-09-10] MEDS: ARIPiprazole 5 MG TABLET PO SCH (09:44)
[2021-09-10] MEDS: PRENATAL VITAMINS W/ FOLIC ACID TABLET (FP) PO SCH (09:44)
[2021-09-10] MEDS: BUDESONIDE/FORMETEROL FUMARATE 80/4.5 mcg INHALER IH SCH ×2 (09:45→21:24)
[2021-09-10] MEDS: NICOTINE 7 MG/24 HOURS TOPICAL PATCH TD SCH (10:08)
[2021-09-10] MEDS: THIAMINE HCL 100 MG TABLET (FP) PO SCH (21:22)
[2021-09-10] MEDS: traZODone HCL 100 MG TABLET (FP) PO SCH (21:23)
[2021-09-10] MEDS: MONTELUKAST NA 10 MG TABLET PO SCH (21:23)
[2021-09-11 06:06] LABS: SARS-CoV-2 NAA Not Detected (Not Detected)
[2021-09-11] MEDS: BUPRENORPHINE/NALOXONE 8 MG/2 MG FILM PACKET SL SCH ×2 (06:11→18:15)
[2021-09-11] MEDS: MENTHOL/PHENOL 1 EACH UD MM PRN ×2 (06:42→18:17)
[2021-09-11] MEDS: NICOTINE 10 MG CARTRIDGE (INHALER) IH PRN ×2 (08:29→16:03)
[2021-09-11] MEDS: BUDESONIDE/FORMETEROL FUMARATE 80/4.5 mcg INHALER IH SCH ×2 (10:01→21:27)
[2021-09-11] MEDS: PRENATAL VITAMINS W/ FOLIC ACID TABLET (FP) PO SCH (10:01)
[2021-09-11] MEDS: NICOTINE 7 MG/24 HOURS TOPICAL PATCH TD SCH (10:01)
[2021-09-11] MEDS: ARIPiprazole 5 MG TABLET PO SCH (10:01)
[2021-09-11] MEDS: IBUPROFEN 400 MG TABLET (FP) PO PRN ×2 (10:01→18:12)
[2021-09-11] MEDS: MONTELUKAST NA 10 MG TABLET PO SCH (21:27)
[2021-09-11] MEDS: traZODone HCL 100 MG TABLET (FP) PO SCH (21:27)
[2021-09-11] MEDS: THIAMINE HCL 100 MG TABLET (FP) PO SCH (21:27)
[2021-09-12] MEDS: BUPRENORPHINE/NALOXONE 8 MG/2 MG FILM PACKET SL SCH ×2 (06:28→17:42)
[2021-09-12] MEDS: MENTHOL/PHENOL 1 EACH UD MM PRN ×2 (07:17→16:10)
[2021-09-12] MEDS: NICOTINE 10 MG CARTRIDGE (INHALER) IH PRN ×3 (07:26→21:22)
[2021-09-12] MEDS: ARIPiprazole 5 MG TABLET PO SCH (09:59)
[2021-09-12] MEDS: NICOTINE 7 MG/24 HOURS TOPICAL PATCH TD SCH (10:00)
[2021-09-12] MEDS: IBUPROFEN 400 MG TABLET (FP) PO PRN ×2 (10:00→16:09)
[2021-09-12] MEDS: BUDESONIDE/FORMETEROL FUMARATE 80/4.5 mcg INHALER IH SCH ×2 (10:00→21:22)
[2021-09-12] MEDS: PRENATAL VITAMINS W/ FOLIC ACID TABLET (FP) PO SCH (10:00)
[2021-09-12] MEDS: THIAMINE HCL 100 MG TABLET (FP) PO SCH (21:23)
[2021-09-12] MEDS: traZODone HCL 100 MG TABLET (FP) PO SCH (21:23)
[2021-09-12] MEDS: MONTELUKAST NA 10 MG TABLET PO SCH (21:23)
[2021-09-13] MEDS: ACETAMINOPHEN 325 MG TABLET (FP) PO PRN ×2 (06:25→21:27)
[2021-09-13] MEDS: BUPRENORPHINE/NALOXONE 8 MG/2 MG FILM PACKET SL SCH ×2 (06:25→18:04)
[2021-09-13] MEDS: MENTHOL/PHENOL 1 EACH UD MM PRN (06:26)
[2021-09-13] MEDS: NICOTINE 10 MG CARTRIDGE (INHALER) IH PRN ×4 (06:26→21:26)
[2021-09-13] MEDS: BUDESONIDE/FORMETEROL FUMARATE 80/4.5 mcg INHALER IH SCH ×2 (09:38→21:26)
[2021-09-13] MEDS: PRENATAL VITAMINS W/ FOLIC ACID TABLET (FP) PO SCH (09:38)
[2021-09-13] MEDS: NICOTINE 7 MG/24 HOURS TOPICAL PATCH TD SCH (09:38)
[2021-09-13] MEDS: IBUPROFEN 400 MG TABLET (FP) PO PRN ×2 (09:39→16:37)
[2021-09-13] MEDS ORDERED: ARIPiprazole 5 MG TABLET ONE (10:22)
[2021-09-13] MEDS: ARIPiprazole 10 MG TABLET PO SCH (10:23)
[2021-09-13] MEDS: THIAMINE HCL 100 MG TABLET (FP) PO SCH (21:27)
[2021-09-13] MEDS: MONTELUKAST NA 10 MG TABLET PO SCH (21:27)
[2021-09-13] MEDS: traZODone HCL 100 MG TABLET (FP) PO SCH (21:27)
[2021-09-14] MEDS: NICOTINE 10 MG CARTRIDGE (INHALER) IH PRN ×4 (06:40→21:41)
[2021-09-14] MEDS: BUPRENORPHINE/NALOXONE 8 MG/2 MG FILM PACKET SL SCH ×2 (06:41→18:04)
[2021-09-14] MEDS: MENTHOL/PHENOL 1 EACH UD MM PRN ×2 (06:42→10:12)
[2021-09-14] MEDS: NICOTINE 7 MG/24 HOURS TOPICAL PATCH TD SCH (10:13)
[2021-09-14] MEDS: PRENATAL VITAMINS W/ FOLIC ACID TABLET (FP) PO SCH (10:13)
[2021-09-14] MEDS: ARIPiprazole 10 MG TABLET PO SCH (10:13)
[2021-09-14] MEDS: IBUPROFEN 400 MG TABLET (FP) PO PRN ×2 (10:14→18:06)
[2021-09-14] MEDS: BUDESONIDE/FORMETEROL FUMARATE 80/4.5 mcg INHALER IH SCH ×2 (10:14→21:41)
[2021-09-14] MEDS: traZODone HCL 100 MG TABLET (FP) PO SCH (21:41)
[2021-09-14] MEDS: THIAMINE HCL 100 MG TABLET (FP) PO SCH (21:41)
[2021-09-14] MEDS: MONTELUKAST NA 10 MG TABLET PO SCH (21:41)
[2021-09-14] MEDS: ACETAMINOPHEN 325 MG TABLET (FP) PO PRN (21:42)
[2021-09-14] MEDS: hydrOXYzine PAMOATE 25 MG CAPSULE (FP) PO PRN (21:43)
[2021-09-15] MEDS: BUPRENORPHINE/NALOXONE 8 MG/2 MG FILM PACKET SL SCH ×2 (06:14→17:42)
[2021-09-15] MEDS: MENTHOL/PHENOL 1 EACH UD MM PRN (06:15)
[2021-09-15] MEDS: NICOTINE 10 MG CARTRIDGE (INHALER) IH PRN ×2 (06:47→11:44)
[2021-09-15] MEDS ORDERED: ARIPiprazole 5 MG TABLET ONE (08:24)
[2021-09-15] MEDS: IBUPROFEN 400 MG TABLET (FP) PO PRN ×2 (09:59→16:23)
[2021-09-15] MEDS: ARIPiprazole 10 MG TABLET PO SCH (10:00)
[2021-09-15] MEDS: hydrOXYzine PAMOATE 25 MG CAPSULE (FP) PO PRN ×2 (10:00→21:23)
[2021-09-15] MEDS: BUDESONIDE/FORMETEROL FUMARATE 80/4.5 mcg INHALER IH SCH ×2 (10:01→21:24)
[2021-09-15] MEDS: PRENATAL VITAMINS W/ FOLIC ACID TABLET (FP) PO SCH (10:01)
[2021-09-15] MEDS: NICOTINE 7 MG/24 HOURS TOPICAL PATCH TD SCH (10:05)
[2021-09-15] MEDS: ACETAMINOPHEN 325 MG TABLET (FP) PO PRN (15:36)
[2021-09-15] MEDS: NICOTINE POLACRILEX 2 MG GUM BUC PRN (15:37)
[2021-09-15] MEDS: THIAMINE HCL 100 MG TABLET (FP) PO SCH (21:23)
[2021-09-15] MEDS: traZODone HCL 100 MG TABLET (FP) PO SCH (21:24)
[2021-09-15] MEDS: MONTELUKAST NA 10 MG TABLET PO SCH (21:24)
[2021-09-16] MEDS: BUPRENORPHINE/NALOXONE 8 MG/2 MG FILM PACKET SL SCH ×2 (06:17→17:08)
[2021-09-16] MEDS: MENTHOL/PHENOL 1 EACH UD MM PRN (06:18)
[2021-09-16] MEDS: NICOTINE 10 MG CARTRIDGE (INHALER) IH PRN ×4 (06:18→21:24)
[2021-09-16] MEDS ORDERED: ARIPiprazole 5 MG TABLET ONE (08:24)
[2021-09-16] MEDS: PRENATAL VITAMINS W/ FOLIC ACID TABLET (FP) PO SCH (09:43)
[2021-09-16] MEDS: BUDESONIDE/FORMETEROL FUMARATE 80/4.5 mcg INHALER IH SCH ×2 (09:43→21:24)
[2021-09-16] MEDS: IBUPROFEN 400 MG TABLET (FP) PO PRN ×2 (09:44→21:25)
[2021-09-16] MEDS: NICOTINE 7 MG/24 HOURS TOPICAL PATCH TD SCH (09:44)
[2021-09-16] MEDS: hydrOXYzine PAMOATE 25 MG CAPSULE (FP) PO PRN ×2 (09:44→21:23)
[2021-09-16] MEDS: ARIPiprazole 10 MG TABLET PO SCH (09:44)
[2021-09-16] MEDS: THIAMINE HCL 100 MG TABLET (FP) PO SCH (21:22)
[2021-09-16] MEDS: MONTELUKAST NA 10 MG TABLET PO SCH (21:23)
[2021-09-16] MEDS: traZODone HCL 100 MG TABLET (FP) PO SCH (21:23)
[2021-09-17] MEDS: NICOTINE 10 MG CARTRIDGE (INHALER) IH PRN ×4 (06:24→18:04)
[2021-09-17] MEDS: BUPRENORPHINE/NALOXONE 8 MG/2 MG FILM PACKET SL SCH ×2 (06:24→18:04)
[2021-09-17] MEDS: BUDESONIDE/FORMETEROL FUMARATE 80/4.5 mcg INHALER IH SCH ×2 (10:00→21:37)
[2021-09-17] MEDS: NICOTINE 7 MG/24 HOURS TOPICAL PATCH TD SCH (10:00)
[2021-09-17] MEDS: ARIPiprazole 10 MG TABLET PO SCH (10:00)
[2021-09-17] MEDS: PRENATAL VITAMINS W/ FOLIC ACID TABLET (FP) PO SCH (10:00)
[2021-09-17] MEDS: hydrOXYzine PAMOATE 25 MG CAPSULE (FP) PO PRN ×2 (12:51→19:00)
[2021-09-17] MEDS: NICOTINE POLACRILEX 2 MG GUM BUC PRN ×2 (12:51→19:00)
[2021-09-17] MEDS: ACETAMINOPHEN 325 MG TABLET (FP) PO PRN (13:44)
[2021-09-17] MEDS: IBUPROFEN 400 MG TABLET (FP) PO PRN (21:36)
[2021-09-17] MEDS: THIAMINE HCL 100 MG TABLET (FP) PO SCH (21:37)
[2021-09-17] MEDS: traZODone HCL 100 MG TABLET (FP) PO SCH (21:37)
[2021-09-17] MEDS: MONTELUKAST NA 10 MG TABLET PO SCH (21:37)
[2021-09-18] MEDS: BUPRENORPHINE/NALOXONE 8 MG/2 MG FILM PACKET SL SCH ×2 (06:14→17:59)
[2021-09-18] MEDS: NICOTINE POLACRILEX 2 MG GUM BUC PRN ×4 (06:15→18:04)
[2021-09-18] MEDS: MENTHOL/PHENOL 1 EACH UD MM PRN (06:15)
[2021-09-18] MEDS: NICOTINE 10 MG CARTRIDGE (INHALER) IH PRN ×4 (06:15→18:04)
[2021-09-18] MEDS: IBUPROFEN 400 MG TABLET (FP) PO PRN ×3 (08:26→21:31)
[2021-09-18] MEDS ORDERED: ARIPiprazole 5 MG TABLET ONE (08:50)
[2021-09-18] MEDS: ARIPiprazole 10 MG TABLET PO SCH (09:44)
[2021-09-18] MEDS: hydrOXYzine PAMOATE 25 MG CAPSULE (FP) PO PRN (09:44)
[2021-09-18] MEDS: PRENATAL VITAMINS W/ FOLIC ACID TABLET (FP) PO SCH (09:45)
[2021-09-18] MEDS: NICOTINE 7 MG/24 HOURS TOPICAL PATCH TD SCH (09:45)
[2021-09-18] MEDS: BUDESONIDE/FORMETEROL FUMARATE 80/4.5 mcg INHALER IH SCH ×2 (09:46→21:32)
[2021-09-18] MEDS: ACETAMINOPHEN 325 MG TABLET (FP) PO PRN (12:57)
[2021-09-18] MEDS ORDERED: AMOXICILLIN 500 MG CAPSULE (FP) PO ONE (16:19)
[2021-09-18] MEDS ORDERED: LIDOCAINE VISCOUS 2% ORAL/TOP 15 ML UNIT-DOSE CUP MM PRN (16:29)
[2021-09-18] MEDS: traZODone HCL 100 MG TABLET (FP) PO SCH (21:29)
[2021-09-18] MEDS: THIAMINE HCL 100 MG TABLET (FP) PO SCH (21:29)
[2021-09-18] MEDS: AMOXICILLIN 500 MG CAPSULE (FP) PO SCH (21:30)
[2021-09-18] MEDS: MONTELUKAST NA 10 MG TABLET PO SCH (21:32)
[2021-09-19] MEDS: AMOXICILLIN 500 MG CAPSULE (FP) PO SCH ×3 (06:20→21:08)
[2021-09-19] MEDS: BUPRENORPHINE/NALOXONE 8 MG/2 MG FILM PACKET SL SCH ×2 (06:20→17:06)
[2021-09-19] MEDS: NICOTINE 10 MG CARTRIDGE (INHALER) IH PRN ×4 (06:21→17:09)
[2021-09-19] MEDS: NICOTINE POLACRILEX 2 MG GUM BUC PRN ×3 (06:21→12:24)
[2021-09-19] MEDS: ARIPiprazole 10 MG TABLET PO SCH (10:01)
[2021-09-19] MEDS: PRENATAL VITAMINS W/ FOLIC ACID TABLET (FP) PO SCH (10:01)
[2021-09-19] MEDS: IBUPROFEN 400 MG TABLET (FP) PO PRN ×2 (10:02→21:09)
[2021-09-19] MEDS: NICOTINE 7 MG/24 HOURS TOPICAL PATCH TD SCH (10:02)
[2021-09-19] MEDS: BUDESONIDE/FORMETEROL FUMARATE 80/4.5 mcg INHALER IH SCH ×2 (10:02→21:08)
[2021-09-19] MEDS: hydrOXYzine PAMOATE 25 MG CAPSULE (FP) PO PRN (10:03)
[2021-09-19] MEDS: MENTHOL/PHENOL 1 EACH UD MM PRN (12:24)
[2021-09-19] MEDS: hydrOXYzine PAMOATE 50 MG CAPSULE (FP) PO PRN ×2 (14:25→21:09)
[2021-09-19] MEDS: MONTELUKAST NA 10 MG TABLET PO SCH (21:08)
[2021-09-19] MEDS: THIAMINE HCL 100 MG TABLET (FP) PO SCH (21:08)
[2021-09-19] MEDS: traZODone HCL 100 MG TABLET (FP) PO SCH (21:08)
[2021-09-20] MEDS: BUPRENORPHINE/NALOXONE 8 MG/2 MG FILM PACKET SL SCH ×2 (06:13→17:58)
[2021-09-20] MEDS: AMOXICILLIN 500 MG CAPSULE (FP) PO SCH ×3 (06:13→21:22)
[2021-09-20] MEDS: NICOTINE POLACRILEX 2 MG GUM BUC PRN (06:14)
[2021-09-20] MEDS: NICOTINE 10 MG CARTRIDGE (INHALER) IH PRN ×4 (06:14→21:19)
[2021-09-20] MEDS: hydrOXYzine PAMOATE 50 MG CAPSULE (FP) PO PRN ×3 (06:37→21:22)
[2021-09-20] MEDS ORDERED: ARIPiprazole 5 MG TABLET ONE (08:34)
[2021-09-20] MEDS: PRENATAL VITAMINS W/ FOLIC ACID TABLET (FP) PO SCH (09:53)
[2021-09-20] MEDS: IBUPROFEN 400 MG TABLET (FP) PO PRN ×2 (09:53→21:23)
[2021-09-20] MEDS: BUDESONIDE/FORMETEROL FUMARATE 80/4.5 mcg INHALER IH SCH ×2 (09:54→21:22)
[2021-09-20] MEDS: NICOTINE 7 MG/24 HOURS TOPICAL PATCH TD SCH (09:54)
[2021-09-20] MEDS: ARIPiprazole 10 MG TABLET PO SCH (09:54)
[2021-09-20] MEDS ORDERED: HYDROCORTISONE 1% TOPICAL CREAM 30 GM TUBE TP PRN (11:54)
[2021-09-20] MEDS: MINERAL OIL/PETROLAT/WATER TOPICAL CREAM 113 GM JAR TP SCH (12:25)
[2021-09-20] MEDS: COLLOIDAL OATMEAL 1 BAR EACH TP PRN (12:36)
[2021-09-20] MEDS: METHOCARBAMOL 500 MG TABLET PO PRN ×2 (12:37→21:22)
[2021-09-20] MEDS: THIAMINE HCL 100 MG TABLET (FP) PO SCH (21:22)
[2021-09-20] MEDS: traZODone HCL 100 MG TABLET (FP) PO SCH (21:22)
[2021-09-20] MEDS: MONTELUKAST NA 10 MG TABLET PO SCH (21:22)
[2021-09-21] MEDS ORDERED: NICOTINE POLACRILEX 2 MG GUM BUC ONE (03:21)
[2021-09-21] MEDS: AMOXICILLIN 500 MG CAPSULE (FP) PO SCH ×3 (06:10→21:08)
[2021-09-21] MEDS: BUPRENORPHINE/NALOXONE 8 MG/2 MG FILM PACKET SL SCH ×2 (06:10→17:00)
[2021-09-21] MEDS: NICOTINE 10 MG CARTRIDGE (INHALER) IH PRN ×3 (06:11→14:19)
[2021-09-21] MEDS: NICOTINE POLACRILEX 2 MG GUM BUC PRN ×3 (06:11→12:33)
[2021-09-21] MEDS ORDERED: ARIPiprazole 5 MG TABLET ONE (08:39)
[2021-09-21] MEDS: MINERAL OIL/PETROLAT/WATER TOPICAL CREAM 113 GM JAR TP SCH (09:48)
[2021-09-21] MEDS: ARIPiprazole 10 MG TABLET PO SCH (09:48)
[2021-09-21] MEDS: IBUPROFEN 400 MG TABLET (FP) PO PRN ×2 (09:50→19:31)
[2021-09-21] MEDS: hydrOXYzine PAMOATE 50 MG CAPSULE (FP) PO PRN ×2 (09:50→21:08)
[2021-09-21] MEDS: PRENATAL VITAMINS W/ FOLIC ACID TABLET (FP) PO SCH (09:51)
[2021-09-21] MEDS: NICOTINE 7 MG/24 HOURS TOPICAL PATCH TD SCH (10:22)
[2021-09-21] MEDS: BUDESONIDE/FORMETEROL FUMARATE 80/4.5 mcg INHALER IH SCH ×2 (10:23→21:40)
[2021-09-21] MEDS: METHOCARBAMOL 500 MG TABLET PO PRN ×2 (14:21→21:08)
[2021-09-21] MEDS: traZODone HCL 100 MG TABLET (FP) PO SCH (21:08)
[2021-09-21] MEDS: MONTELUKAST NA 10 MG TABLET PO SCH (21:08)
[2021-09-21] MEDS: THIAMINE HCL 100 MG TABLET (FP) PO SCH (21:40)
[2021-09-22] MEDS: NICOTINE 10 MG CARTRIDGE (INHALER) IH PRN ×3 (06:16→18:11)
[2021-09-22] MEDS: AMOXICILLIN 500 MG CAPSULE (FP) PO SCH ×3 (06:17→21:09)
[2021-09-22] MEDS: METHOCARBAMOL 500 MG TABLET PO PRN ×3 (06:18→21:09)
[2021-09-22] MEDS: BUPRENORPHINE/NALOXONE 8 MG/2 MG FILM PACKET SL SCH ×2 (06:18→18:10)
[2021-09-22] MEDS: NICOTINE POLACRILEX 2 MG GUM BUC PRN ×3 (07:19→21:11)
[2021-09-22] MEDS: NICOTINE 7 MG/24 HOURS TOPICAL PATCH TD SCH (09:54)
[2021-09-22] MEDS: PRENATAL VITAMINS W/ FOLIC ACID TABLET (FP) PO SCH (09:54)
[2021-09-22] MEDS: BUDESONIDE/FORMETEROL FUMARATE 80/4.5 mcg INHALER IH SCH ×2 (09:54→21:39)
[2021-09-22] MEDS: MINERAL OIL/PETROLAT/WATER TOPICAL CREAM 113 GM JAR TP SCH (09:54)
[2021-09-22] MEDS: ARIPiprazole 10 MG TABLET PO SCH (09:54)
[2021-09-22] MEDS: hydrOXYzine PAMOATE 50 MG CAPSULE (FP) PO PRN ×2 (09:55→21:10)
[2021-09-22] MEDS: IBUPROFEN 400 MG TABLET (FP) PO PRN ×2 (09:55→17:13)
[2021-09-22] MEDS: traZODone HCL 100 MG TABLET (FP) PO SCH (21:08)
[2021-09-22] MEDS: THIAMINE HCL 100 MG TABLET (FP) PO SCH (21:09)
[2021-09-22] MEDS: MONTELUKAST NA 10 MG TABLET PO SCH (21:09)
[2021-09-23] MEDS: NICOTINE 10 MG CARTRIDGE (INHALER) IH PRN ×4 (06:21→20:59)
[2021-09-23] MEDS: AMOXICILLIN 500 MG CAPSULE (FP) PO SCH ×3 (06:22→20:59)
[2021-09-23] MEDS: METHOCARBAMOL 500 MG TABLET PO PRN ×3 (06:23→21:00)
[2021-09-23] MEDS: BUPRENORPHINE/NALOXONE 8 MG/2 MG FILM PACKET SL SCH ×2 (06:23→18:03)
[2021-09-23] MEDS: IBUPROFEN 400 MG TABLET (FP) PO PRN ×2 (06:49→15:43)
[2021-09-23] MEDS: ARIPiprazole 10 MG TABLET PO SCH (09:56)
[2021-09-23] MEDS: NICOTINE POLACRILEX 2 MG GUM BUC PRN (09:56)
[2021-09-23] MEDS: hydrOXYzine PAMOATE 50 MG CAPSULE (FP) PO PRN ×2 (09:56→21:00)
[2021-09-23] MEDS: PRENATAL VITAMINS W/ FOLIC ACID TABLET (FP) PO SCH (09:57)
[2021-09-23] MEDS: BUDESONIDE/FORMETEROL FUMARATE 80/4.5 mcg INHALER IH SCH ×2 (09:57→21:00)
[2021-09-23] MEDS: MINERAL OIL/PETROLAT/WATER TOPICAL CREAM 113 GM JAR TP SCH (09:57)
[2021-09-23] MEDS: NICOTINE 7 MG/24 HOURS TOPICAL PATCH TD SCH (09:57)
[2021-09-23] MEDS: MONTELUKAST NA 10 MG TABLET PO SCH (20:59)
[2021-09-23] MEDS: traZODone HCL 100 MG TABLET (FP) PO SCH (20:59)
[2021-09-23] MEDS: THIAMINE HCL 100 MG TABLET (FP) PO SCH (21:00)
[2021-09-24] MEDS: IBUPROFEN 400 MG TABLET (FP) PO PRN ×2 (03:35→13:28)
[2021-09-24] MEDS: NICOTINE 10 MG CARTRIDGE (INHALER) IH PRN ×3 (06:03→17:10)
[2021-09-24] MEDS: BUPRENORPHINE/NALOXONE 8 MG/2 MG FILM PACKET SL SCH ×2 (06:03→17:09)
[2021-09-24] MEDS: AMOXICILLIN 500 MG CAPSULE (FP) PO SCH ×3 (06:03→21:02)
[2021-09-24] MEDS: METHOCARBAMOL 500 MG TABLET PO PRN ×2 (06:03→21:04)
[2021-09-24] MEDS: NICOTINE POLACRILEX 2 MG GUM BUC PRN ×2 (07:14→12:28)
[2021-09-24] MEDS ORDERED: ARIPiprazole 5 MG TABLET ONE (08:14)
[2021-09-24] MEDS: ARIPiprazole 10 MG TABLET PO SCH (09:37)
[2021-09-24] MEDS: PRENATAL VITAMINS W/ FOLIC ACID TABLET (FP) PO SCH (09:38)
[2021-09-24] MEDS: BUDESONIDE/FORMETEROL FUMARATE 80/4.5 mcg INHALER IH SCH ×2 (09:38→21:40)
[2021-09-24] MEDS: NICOTINE 7 MG/24 HOURS TOPICAL PATCH TD SCH (09:38)
[2021-09-24] MEDS: MINERAL OIL/PETROLAT/WATER TOPICAL CREAM 113 GM JAR TP SCH (09:39)
[2021-09-24] MEDS: hydrOXYzine PAMOATE 50 MG CAPSULE (FP) PO PRN ×2 (13:43→21:04)
[2021-09-24] MEDS: traZODone HCL 100 MG TABLET (FP) PO SCH (21:02)
[2021-09-24] MEDS: MONTELUKAST NA 10 MG TABLET PO SCH (21:02)
[2021-09-24] MEDS: THIAMINE HCL 100 MG TABLET (FP) PO SCH (21:02)
[2021-09-25] MEDS: AMOXICILLIN 500 MG CAPSULE (FP) PO SCH ×3 (06:17→21:23)
[2021-09-25] MEDS: BUPRENORPHINE/NALOXONE 8 MG/2 MG FILM PACKET SL SCH ×2 (06:17→18:19)
[2021-09-25] MEDS: METHOCARBAMOL 500 MG TABLET PO PRN ×3 (06:17→21:23)
[2021-09-25] MEDS: NICOTINE 10 MG CARTRIDGE (INHALER) IH PRN ×4 (06:18→21:21)
[2021-09-25] MEDS: NICOTINE POLACRILEX 2 MG GUM BUC PRN ×2 (06:18→14:15)
[2021-09-25] MEDS: hydrOXYzine PAMOATE 50 MG CAPSULE (FP) PO PRN ×2 (09:57→21:23)
[2021-09-25] MEDS: IBUPROFEN 400 MG TABLET (FP) PO PRN ×2 (09:57→21:23)
[2021-09-25] MEDS: PRENATAL VITAMINS W/ FOLIC ACID TABLET (FP) PO SCH (09:57)
[2021-09-25] MEDS: BUDESONIDE/FORMETEROL FUMARATE 80/4.5 mcg INHALER IH SCH ×2 (09:57→21:44)
[2021-09-25] MEDS: ARIPiprazole 10 MG TABLET PO SCH (09:57)
[2021-09-25] MEDS: NICOTINE 7 MG/24 HOURS TOPICAL PATCH TD SCH (09:57)
[2021-09-25] MEDS: MINERAL OIL/PETROLAT/WATER TOPICAL CREAM 113 GM JAR TP SCH (09:57)
[2021-09-25] MEDS: THIAMINE HCL 100 MG TABLET (FP) PO SCH (21:23)
[2021-09-25] MEDS: MONTELUKAST NA 10 MG TABLET PO SCH (21:24)
[2021-09-25] MEDS: traZODone HCL 100 MG TABLET (FP) PO SCH (21:24)
[2021-09-26] MEDS: BUPRENORPHINE/NALOXONE 8 MG/2 MG FILM PACKET SL SCH ×2 (06:07→17:13)
[2021-09-26] MEDS: AMOXICILLIN 500 MG CAPSULE (FP) PO SCH ×3 (06:08→21:32)
[2021-09-26] MEDS: NICOTINE POLACRILEX 2 MG GUM BUC PRN ×4 (06:08→17:15)
[2021-09-26] MEDS: NICOTINE 10 MG CARTRIDGE (INHALER) IH PRN ×4 (06:08→21:31)
[2021-09-26] MEDS: METHOCARBAMOL 500 MG TABLET PO PRN (06:51)
[2021-09-26] MEDS ORDERED: ARIPiprazole 5 MG TABLET ONE (08:41)
[2021-09-26] MEDS: ARIPiprazole 10 MG TABLET PO SCH (10:03)
[2021-09-26] MEDS: LIDOCAINE 5% TOPICAL PATCH TP SCH (10:04)
[2021-09-26] MEDS: PRENATAL VITAMINS W/ FOLIC ACID TABLET (FP) PO SCH (10:04)
[2021-09-26] MEDS: BUDESONIDE/FORMETEROL FUMARATE 80/4.5 mcg INHALER IH SCH ×2 (10:04→21:59)
[2021-09-26] MEDS: MINERAL OIL/PETROLAT/WATER TOPICAL CREAM 113 GM JAR TP SCH (10:04)
[2021-09-26] MEDS: NICOTINE 7 MG/24 HOURS TOPICAL PATCH TD SCH (10:04)
[2021-09-26] MEDS: hydrOXYzine PAMOATE 50 MG CAPSULE (FP) PO PRN ×2 (10:05→21:29)
[2021-09-26] MEDS: IBUPROFEN 400 MG TABLET (FP) PO PRN (12:35)
[2021-09-26] MEDS: MONTELUKAST NA 10 MG TABLET PO SCH (21:32)
[2021-09-26] MEDS: traZODone HCL 100 MG TABLET (FP) PO SCH (21:32)
[2021-09-26] MEDS: THIAMINE HCL 100 MG TABLET (FP) PO SCH (21:32)
[2021-09-26] MEDS: LIDOCAINE PATCH REMOVAL MC SCH (21:59)
[2021-09-27] MEDS: AMOXICILLIN 500 MG CAPSULE (FP) PO SCH ×3 (06:11→21:05)
[2021-09-27] MEDS: METHOCARBAMOL 500 MG TABLET PO PRN ×3 (06:11→21:07)
[2021-09-27] MEDS: BUPRENORPHINE/NALOXONE 8 MG/2 MG FILM PACKET SL SCH ×2 (06:11→17:59)
[2021-09-27] MEDS: IBUPROFEN 400 MG TABLET (FP) PO PRN ×2 (06:12→21:07)
[2021-09-27] MEDS: hydrOXYzine PAMOATE 50 MG CAPSULE (FP) PO PRN ×3 (06:12→21:07)
[2021-09-27] MEDS: NICOTINE POLACRILEX 2 MG GUM BUC PRN ×3 (06:15→16:36)
[2021-09-27] MEDS: NICOTINE 10 MG CARTRIDGE (INHALER) IH PRN ×5 (06:15→21:08)
[2021-09-27] MEDS: LIDOCAINE 5% TOPICAL PATCH TP SCH ×2 (09:51→09:52)
[2021-09-27] MEDS: BUDESONIDE/FORMETEROL FUMARATE 80/4.5 mcg INHALER IH SCH ×2 (09:52→21:06)
[2021-09-27] MEDS: ARIPiprazole 10 MG TABLET PO SCH (09:52)
[2021-09-27] MEDS: MINERAL OIL/PETROLAT/WATER TOPICAL CREAM 113 GM JAR TP SCH (09:53)
[2021-09-27] MEDS: PRENATAL VITAMINS W/ FOLIC ACID TABLET (FP) PO SCH (09:53)
[2021-09-27] MEDS: NICOTINE 7 MG/24 HOURS TOPICAL PATCH TD SCH (09:53)
[2021-09-27] MEDS: COLLOIDAL OATMEAL 1 BAR EACH TP PRN (09:54)
[2021-09-27] MEDS: MAGNESIUM HYDROX 2400MG/30ML ORAL SUSPENSION 30 ML CUP PO PRN (18:02)
[2021-09-27] MEDS: traZODone HCL 100 MG TABLET (FP) PO SCH (21:05)
[2021-09-27] MEDS: MONTELUKAST NA 10 MG TABLET PO SCH (21:05)
[2021-09-27] MEDS: THIAMINE HCL 100 MG TABLET (FP) PO SCH (21:05)
[2021-09-27] MEDS: METHYL SALICYLATE/MENTHOL OINT 30 GM TUBE TP SCH (21:09)
[2021-09-27] MEDS: LIDOCAINE PATCH REMOVAL MC SCH ×2 (21:10)
[2021-09-28] MEDS: IBUPROFEN 400 MG TABLET (FP) PO PRN ×2 (05:05→10:09)
[2021-09-28] MEDS: METHOCARBAMOL 500 MG TABLET PO PRN ×2 (06:10→21:46)
[2021-09-28] MEDS: NICOTINE 10 MG CARTRIDGE (INHALER) IH PRN ×5 (06:10→21:47)
[2021-09-28] MEDS: BUPRENORPHINE/NALOXONE 8 MG/2 MG FILM PACKET SL SCH ×2 (06:11→17:53)
[2021-09-28] MEDS: AMOXICILLIN 500 MG CAPSULE (FP) PO SCH ×2 (06:11→14:06)
[2021-09-28] MEDS: NICOTINE POLACRILEX 2 MG GUM BUC PRN ×4 (07:29→21:50)
[2021-09-28] MEDS ORDERED: ARIPiprazole 5 MG TABLET ONE (09:28)
[2021-09-28] MEDS: ARIPiprazole 10 MG TABLET PO SCH (10:11)
[2021-09-28] MEDS: LIDOCAINE 5% TOPICAL PATCH TP SCH ×2 (10:12)
[2021-09-28] MEDS: NICOTINE 7 MG/24 HOURS TOPICAL PATCH TD SCH (10:13)
[2021-09-28] MEDS: PRENATAL VITAMINS W/ FOLIC ACID TABLET (FP) PO SCH (10:13)
[2021-09-28] MEDS: BUDESONIDE/FORMETEROL FUMARATE 80/4.5 mcg INHALER IH SCH ×2 (10:13→21:42)
[2021-09-28] MEDS: MINERAL OIL/PETROLAT/WATER TOPICAL CREAM 113 GM JAR TP SCH (10:53)
[2021-09-28] MEDS: hydrOXYzine PAMOATE 50 MG CAPSULE (FP) PO PRN ×2 (17:52→21:48)
[2021-09-28] MEDS: METHYL SALICYLATE/MENTHOL OINT 30 GM TUBE TP SCH (21:45)
[2021-09-28] MEDS: traZODone HCL 100 MG TABLET (FP) PO SCH (21:45)
[2021-09-28] MEDS: MONTELUKAST NA 10 MG TABLET PO SCH (21:46)
[2021-09-28] MEDS: THIAMINE HCL 100 MG TABLET (FP) PO SCH (21:46)
[2021-09-28] MEDS: LIDOCAINE PATCH REMOVAL MC SCH ×2 (21:46)
[2021-09-29] MEDS: METHOCARBAMOL 500 MG TABLET PO PRN ×2 (01:52→21:06)
[2021-09-29] MEDS: IBUPROFEN 400 MG TABLET (FP) PO PRN ×2 (06:10→21:06)
[2021-09-29] MEDS: NICOTINE POLACRILEX 2 MG GUM BUC PRN ×3 (06:11→17:20)
[2021-09-29] MEDS: BUPRENORPHINE/NALOXONE 8 MG/2 MG FILM PACKET SL SCH ×2 (06:11→17:20)
[2021-09-29] MEDS: NICOTINE 10 MG CARTRIDGE (INHALER) IH PRN ×3 (06:11→14:32)
[2021-09-29] MEDS ORDERED: ARIPiprazole 5 MG TABLET ONE (08:21)
[2021-09-29] MEDS: ARIPiprazole 10 MG TABLET PO SCH (09:58)
[2021-09-29] MEDS: MINERAL OIL/PETROLAT/WATER TOPICAL CREAM 113 GM JAR TP SCH (09:58)
[2021-09-29] MEDS: LIDOCAINE 5% TOPICAL PATCH TP SCH ×2 (09:58→09:59)
[2021-09-29] MEDS: NICOTINE 7 MG/24 HOURS TOPICAL PATCH TD SCH (09:59)
[2021-09-29] MEDS: hydrOXYzine PAMOATE 50 MG CAPSULE (FP) PO PRN ×2 (09:59→21:06)
[2021-09-29] MEDS: PRENATAL VITAMINS W/ FOLIC ACID TABLET (FP) PO SCH (09:59)
[2021-09-29] MEDS: BUDESONIDE/FORMETEROL FUMARATE 80/4.5 mcg INHALER IH SCH ×2 (09:59→21:07)
[2021-09-29] MEDS: THIAMINE HCL 100 MG TABLET (FP) PO SCH (21:06)
[2021-09-29] MEDS: traZODone HCL 100 MG TABLET (FP) PO SCH (21:06)
[2021-09-29] MEDS: LIDOCAINE PATCH REMOVAL MC SCH ×2 (21:08)
[2021-09-29] MEDS: METHYL SALICYLATE/MENTHOL OINT 30 GM TUBE TP SCH (21:08)
[2021-09-29] MEDS: MONTELUKAST NA 10 MG TABLET PO SCH (21:42)
[2021-09-30] MEDS: BUPRENORPHINE/NALOXONE 8 MG/2 MG FILM PACKET SL SCH ×2 (06:09→18:06)
[2021-09-30] MEDS: METHOCARBAMOL 500 MG TABLET PO PRN ×3 (06:09→21:19)
[2021-09-30] MEDS: NICOTINE POLACRILEX 2 MG GUM BUC PRN (06:10)
[2021-09-30] MEDS: NICOTINE 10 MG CARTRIDGE (INHALER) IH PRN ×5 (06:10→21:20)
[2021-09-30] MEDS ORDERED: ARIPiprazole 5 MG TABLET ONE (09:11)
[2021-09-30] MEDS: PRENATAL VITAMINS W/ FOLIC ACID TABLET (FP) PO SCH (09:57)
[2021-09-30] MEDS: hydrOXYzine PAMOATE 50 MG CAPSULE (FP) PO PRN ×3 (09:57→21:19)
[2021-09-30] MEDS: IBUPROFEN 400 MG TABLET (FP) PO PRN ×2 (09:58→21:19)
[2021-09-30] MEDS: ARIPiprazole 10 MG TABLET PO SCH (09:59)
[2021-09-30] MEDS: MINERAL OIL/PETROLAT/WATER TOPICAL CREAM 113 GM JAR TP SCH (09:59)
[2021-09-30] MEDS: LIDOCAINE 5% TOPICAL PATCH TP SCH ×2 (09:59→10:00)
[2021-09-30] MEDS: NICOTINE 7 MG/24 HOURS TOPICAL PATCH TD SCH (10:00)
[2021-09-30] MEDS: BUDESONIDE/FORMETEROL FUMARATE 80/4.5 mcg INHALER IH SCH ×2 (10:00→21:21)
[2021-09-30] MEDS: THIAMINE HCL 100 MG TABLET (FP) PO SCH (21:18)
[2021-09-30] MEDS: traZODone HCL 100 MG TABLET (FP) PO SCH (21:19)
[2021-09-30] MEDS: MONTELUKAST NA 10 MG TABLET PO SCH (21:20)
[2021-09-30] MEDS: LIDOCAINE PATCH REMOVAL MC SCH ×2 (21:21)
[2021-09-30] MEDS: METHYL SALICYLATE/MENTHOL OINT 30 GM TUBE TP SCH (21:21)
[2021-10-01] MEDS: BUPRENORPHINE/NALOXONE 8 MG/2 MG FILM PACKET SL SCH ×2 (05:56→17:02)
[2021-10-01] MEDS: NICOTINE POLACRILEX 2 MG GUM BUC PRN ×2 (05:57→11:54)
[2021-10-01] MEDS: NICOTINE 10 MG CARTRIDGE (INHALER) IH PRN ×3 (06:15→21:21)
[2021-10-01] MEDS: hydrOXYzine PAMOATE 50 MG CAPSULE (FP) PO PRN ×2 (08:43→21:21)
[2021-10-01] MEDS: ARIPiprazole 10 MG TABLET PO SCH (09:38)
[2021-10-01] MEDS: LIDOCAINE 5% TOPICAL PATCH TP SCH ×2 (09:38→09:39)
[2021-10-01] MEDS: MINERAL OIL/PETROLAT/WATER TOPICAL CREAM 113 GM JAR TP SCH (09:38)
[2021-10-01] MEDS: PRENATAL VITAMINS W/ FOLIC ACID TABLET (FP) PO SCH (09:39)
[2021-10-01] MEDS: NICOTINE 7 MG/24 HOURS TOPICAL PATCH TD SCH (09:39)
[2021-10-01] MEDS: IBUPROFEN 400 MG TABLET (FP) PO PRN ×2 (09:40→21:21)
[2021-10-01] MEDS: METHOCARBAMOL 500 MG TABLET PO PRN ×3 (09:40→21:21)
[2021-10-01] MEDS ORDERED: ARIPiprazole 5 MG TABLET ONE (09:43)
[2021-10-01] MEDS: BUDESONIDE/FORMETEROL FUMARATE 80/4.5 mcg INHALER IH SCH ×2 (11:00→21:22)
[2021-10-01] MEDS: traZODone HCL 100 MG TABLET (FP) PO SCH (21:21)
[2021-10-01] MEDS: THIAMINE HCL 100 MG TABLET (FP) PO SCH (21:22)
[2021-10-01] MEDS: MONTELUKAST NA 10 MG TABLET PO SCH (21:22)
[2021-10-01] MEDS: METHYL SALICYLATE/MENTHOL OINT 30 GM TUBE TP SCH (21:22)
[2021-10-01] MEDS: LIDOCAINE PATCH REMOVAL MC SCH ×2 (21:22)
[2021-10-02] MEDS: BUPRENORPHINE/NALOXONE 8 MG/2 MG FILM PACKET SL SCH ×2 (06:21→18:05)
[2021-10-02] MEDS: METHOCARBAMOL 500 MG TABLET PO PRN ×2 (06:22→21:19)
[2021-10-02] MEDS: NICOTINE 10 MG CARTRIDGE (INHALER) IH PRN ×3 (06:22→14:45)
[2021-10-02] MEDS: NICOTINE POLACRILEX 2 MG GUM BUC PRN ×4 (06:22→15:44)
[2021-10-02] MEDS: LIDOCAINE 5% TOPICAL PATCH TP SCH ×2 (09:41)
[2021-10-02] MEDS: PRENATAL VITAMINS W/ FOLIC ACID TABLET (FP) PO SCH (09:41)
[2021-10-02] MEDS: MINERAL OIL/PETROLAT/WATER TOPICAL CREAM 113 GM JAR TP SCH (09:41)
[2021-10-02] MEDS: hydrOXYzine PAMOATE 50 MG CAPSULE (FP) PO PRN ×3 (09:41→21:21)
[2021-10-02] MEDS: ARIPiprazole 10 MG TABLET PO SCH (09:42)
[2021-10-02] MEDS: NICOTINE 7 MG/24 HOURS TOPICAL PATCH TD SCH (09:42)
[2021-10-02] MEDS: BUDESONIDE/FORMETEROL FUMARATE 80/4.5 mcg INHALER IH SCH ×2 (09:42→22:50)
[2021-10-02] MEDS: THIAMINE HCL 100 MG TABLET (FP) PO SCH (21:19)
[2021-10-02] MEDS: MONTELUKAST NA 10 MG TABLET PO SCH (21:19)
[2021-10-02] MEDS: traZODone HCL 100 MG TABLET (FP) PO SCH (21:19)
[2021-10-02] MEDS: IBUPROFEN 400 MG TABLET (FP) PO PRN (21:19)
[2021-10-02] MEDS: METHYL SALICYLATE/MENTHOL OINT 30 GM TUBE TP SCH (22:48)
[2021-10-02] MEDS: LIDOCAINE PATCH REMOVAL MC SCH ×2 (22:49)
[2021-10-03] MEDS: METHOCARBAMOL 500 MG TABLET PO PRN ×3 (03:05→17:24)
[2021-10-03] MEDS: NICOTINE POLACRILEX 2 MG GUM BUC PRN ×4 (06:15→16:51)
[2021-10-03] MEDS: BUPRENORPHINE/NALOXONE 8 MG/2 MG FILM PACKET SL SCH ×2 (06:15→17:11)
[2021-10-03] MEDS: NICOTINE 10 MG CARTRIDGE (INHALER) IH PRN ×4 (06:15→21:15)
[2021-10-03] MEDS: P-EPHED 60MG/TRIPROLIDI 2.5MG TABLET PO PRN (06:54)
[2021-10-03] MEDS: MAGNESIUM HYDROX 2400MG/30ML ORAL SUSPENSION 30 ML CUP PO PRN (07:46)
[2021-10-03] MEDS: hydrOXYzine PAMOATE 50 MG CAPSULE (FP) PO PRN ×2 (10:01→21:14)
[2021-10-03] MEDS: ARIPiprazole 10 MG TABLET PO SCH (10:02)
[2021-10-03] MEDS: PRENATAL VITAMINS W/ FOLIC ACID TABLET (FP) PO SCH (10:02)
[2021-10-03] MEDS: BUDESONIDE/FORMETEROL FUMARATE 80/4.5 mcg INHALER IH SCH ×2 (10:02→21:15)
[2021-10-03] MEDS: MINERAL OIL/PETROLAT/WATER TOPICAL CREAM 113 GM JAR TP SCH (10:03)
[2021-10-03] MEDS: LIDOCAINE 5% TOPICAL PATCH TP SCH ×2 (10:03)
[2021-10-03] MEDS: NICOTINE 7 MG/24 HOURS TOPICAL PATCH TD SCH (10:03)
[2021-10-03] MEDS: IBUPROFEN 400 MG TABLET (FP) PO PRN ×2 (10:04→21:13)
[2021-10-03] MEDS ORDERED: SODIUM PHOSPHATE/NA BIPHOS 133 ML ENEMA RC ONE (11:12)
[2021-10-03] MEDS: THIAMINE HCL 100 MG TABLET (FP) PO SCH (21:13)
[2021-10-03] MEDS: traZODone HCL 100 MG TABLET (FP) PO SCH (21:14)
[2021-10-03] MEDS: LIDOCAINE PATCH REMOVAL MC SCH ×2 (21:14)
[2021-10-03] MEDS: METHYL SALICYLATE/MENTHOL OINT 30 GM TUBE TP SCH (21:14)
[2021-10-03] MEDS: MONTELUKAST NA 10 MG TABLET PO SCH (21:14)
[2021-10-04] MEDS: IBUPROFEN 400 MG TABLET (FP) PO PRN ×3 (02:02→21:04)
[2021-10-04] MEDS: hydrOXYzine PAMOATE 50 MG CAPSULE (FP) PO PRN ×2 (06:13→21:04)
[2021-10-04] MEDS: METHOCARBAMOL 500 MG TABLET PO PRN ×2 (06:13→21:04)
[2021-10-04] MEDS: BUPRENORPHINE/NALOXONE 8 MG/2 MG FILM PACKET SL SCH ×2 (06:13→17:04)
[2021-10-04] MEDS: NICOTINE 10 MG CARTRIDGE (INHALER) IH PRN ×4 (06:14→17:55)
[2021-10-04] MEDS: NICOTINE POLACRILEX 2 MG GUM BUC PRN ×4 (06:33→17:56)
[2021-10-04] MEDS ORDERED: ARIPiprazole 5 MG TABLET ONE (08:40)
[2021-10-04] MEDS: ARIPiprazole 10 MG TABLET PO SCH (09:39)
[2021-10-04] MEDS: MINERAL OIL/PETROLAT/WATER TOPICAL CREAM 113 GM JAR TP SCH (09:40)
[2021-10-04] MEDS: LIDOCAINE 5% TOPICAL PATCH TP SCH ×2 (09:40→09:41)
[2021-10-04] MEDS: BUDESONIDE/FORMETEROL FUMARATE 80/4.5 mcg INHALER IH SCH ×2 (09:40→21:06)
[2021-10-04] MEDS: NICOTINE 7 MG/24 HOURS TOPICAL PATCH TD SCH (10:05)
[2021-10-04] MEDS: PRENATAL VITAMINS W/ FOLIC ACID TABLET (FP) PO SCH (10:05)
[2021-10-04] MEDS: P-EPHED 60MG/TRIPROLIDI 2.5MG TABLET PO PRN (17:55)
[2021-10-04] MEDS: traZODone HCL 100 MG TABLET (FP) PO SCH (21:04)
[2021-10-04] MEDS: MONTELUKAST NA 10 MG TABLET PO SCH (21:04)
[2021-10-04] MEDS: THIAMINE HCL 100 MG TABLET (FP) PO SCH (21:04)
[2021-10-04] MEDS: LIDOCAINE PATCH REMOVAL MC SCH ×2 (21:05)
[2021-10-04] MEDS: METHYL SALICYLATE/MENTHOL OINT 30 GM TUBE TP SCH (21:05)
[2021-10-05] MEDS: hydrOXYzine PAMOATE 50 MG CAPSULE (FP) PO PRN (06:06)
[2021-10-05] MEDS: IBUPROFEN 400 MG TABLET (FP) PO PRN (06:06)
[2021-10-05] MEDS: BUPRENORPHINE/NALOXONE 8 MG/2 MG FILM PACKET SL SCH (06:06)
[2021-10-05] MEDS: METHOCARBAMOL 500 MG TABLET PO PRN (06:06)
[2021-10-05] MEDS: NICOTINE 10 MG CARTRIDGE (INHALER) IH PRN (06:07)
[2021-10-05] MEDS: NICOTINE POLACRILEX 2 MG GUM BUC PRN ×2 (06:07→09:05)
[2021-10-05 06:59] VITALS: BP 113/73; PULSE 80; TEMP 96.9
[2021-10-05] MEDS ORDERED: ARIPiprazole 5 MG TABLET ONE (08:21)
[2021-10-05] MEDS: ARIPiprazole 10 MG TABLET PO SCH (09:03)
[2021-10-05] MEDS: MINERAL OIL/PETROLAT/WATER TOPICAL CREAM 113 GM JAR TP SCH (09:04)
[2021-10-05] MEDS: BUDESONIDE/FORMETEROL FUMARATE 80/4.5 mcg INHALER IH SCH (09:04)
[2021-10-05] MEDS: LIDOCAINE 5% TOPICAL PATCH TP SCH ×2 (09:04)
[2021-10-05] MEDS: NICOTINE 7 MG/24 HOURS TOPICAL PATCH TD SCH (09:04)
[2021-10-05] MEDS: PRENATAL VITAMINS W/ FOLIC ACID TABLET (FP) PO SCH (09:04)
== END 2021-10-05 09:10 | disposition home or self-care (01) | DRG 772 ==
LOC: YASAS 13:17 → Y3E 13:19
PROVIDERS: ADMIT Allergy & Immunology; ATTEND Allergy & Immunology
PROC: HZ42ZZZ Group Counseling for Substance Abuse Treatment, Cognitive-Behavioral (ICD-10-PCS; principal; 2021-09-07)
DX: F11.20 Opioid dependence, uncomplicated (principal); F14.20 Cocaine dependence, uncomplicated; F13.20 Sedative, hypnotic or anxiolytic dependence, uncomplicated; F17.210 Nicotine dependence, cigarettes, uncomplicated; F19.280 Other psychoactive substance dependence with psychoactive substance-induced anxiety disorder; F19.282 Other psychoactive substance dependence with psychoactive substance-induced sleep disorder; F19.24 Other psychoactive substance dependence with psychoactive substance-induced mood disorder; F31.9 Bipolar disorder, unspecified; I50.9 Heart failure, unspecified; J43.8 Other emphysema; J45.20 Mild intermittent asthma, uncomplicated; M25.561 Pain in right knee; K59.04 Chronic idiopathic constipation; K04.7 Periapical abscess without sinus; K02.9 Dental caries, unspecified; B18.2 Chronic viral hepatitis C; Z51.81 Encounter for therapeutic drug level monitoring; Z79.899 Other long term (current) drug therapy
CPT/HCPCS: C9803-CS; U0003; U0005

== ENCOUNTER 2022-04-04 09:46 | Inpatient (IN) | payer OTHER ==
[2022-04-04 10:41] VITALS: BMI 45.1
[2022-04-04] MEDS ORDERED: IBUPROFEN 400 MG TABLET (FP) PO PRN (12:00)
[2022-04-04] MEDS ORDERED: MAGNESIUM HYDROX 2400MG/30ML ORAL SUSPENSION 30 ML CUP PO PRN (12:00)
[2022-04-04] MEDS ORDERED: BISMUTH SUBSALICYLATE 262 MG/15 ML BTL PO PRN (12:00)
[2022-04-04] MEDS ORDERED: IBUPROFEN 600 MG TABLET (FP) PO PRN (12:00)
[2022-04-04] MEDS ORDERED: DICYCLOMINE HCL 10 MG CAPSULE PO PRN (12:00)
[2022-04-04] MEDS ORDERED: NALOXONE HCL (KLOXXADO) 8 MG SPRAY NS PRN (12:00)
[2022-04-04] MEDS ORDERED: LOPERAMIDE HCL 2 MG CAPSULE PO PRN (12:00)
[2022-04-04] MEDS ORDERED: ACETAMINOPHEN 325 MG TABLET (FP) PO PRN ×2 (12:00)
[2022-04-04] MEDS ORDERED: MAG HYDROX/AL HYDROX/SIMETH 30 ML UNIT-DOSE CUP PO PRN (12:00)
[2022-04-04] MEDS ORDERED: MAGNESIUM CITRATE 300 ML BOTTLE PO PRN (12:00)
[2022-04-04] MEDS ORDERED: BENZOCAINE/MENTHOL (CHLORASEPTIC ) LOZENGE MM PRN (12:00)
[2022-04-04] MEDS ORDERED: ALBUTEROL SO4 HFA INHALER IH PRN (12:11)
[2022-04-04] MEDS: hydrOXYzine PAMOATE 25 MG CAPSULE (FP) PO SCH ×3 (13:20→22:26)
[2022-04-04] MEDS: NICOTINE 10 MG CARTRIDGE (INHALER) IH PRN (13:20)
[2022-04-04] MEDS: BACITRACIN 15 GM TUBE TOPICAL OINTMENT TP SCH ×2 (14:58→22:27)
[2022-04-04 16:53] LABS: HEMATOCRIT 39.7 % (35.4-49); HEMOGLOBIN 12.7 GM/dL (11.7-16.9); MCH 29.8 pg (25.7-33.7); MEAN CELL VOLUME 93.3 fl (80-96); MEAN PLT VOLUME 8.6 fl (7.5-11.1); PLATELET COUNT 331 10^3/uL (134-434); RBC 4.26 M/mm3 (4.00-5.60); RDW 15.9 % (11.9-15.9); WHITE BLOOD COUNT 8.2 K/mm3 (4.0-10.0)
[2022-04-04 17:09] LABS: ALBUMIN 4.1 g/dl (3.4-5.0)
[2022-04-04 17:10] LABS: BLOOD UREA NITROGEN 22.2 mg/dL (7-18); CALCIUM 9.9 mg/dL (8.5-10.1)
[2022-04-04 17:14] LABS: BILIRUBIN,TOTAL 0.4 mg/dL (0.2-1); TOT PROT 7.6 g/dl (6.4-8.2)
[2022-04-04] MEDS: MONTELUKAST NA 10 MG TABLET PO SCH (22:26)
[2022-04-04] MEDS: THIAMINE HCL 100 MG TABLET (FP) PO SCH (22:26)
[2022-04-04] MEDS: MELATONIN 5 MG TABLETS PO SCH (22:27)
[2022-04-05] MEDS: hydrOXYzine PAMOATE 25 MG CAPSULE (FP) PO SCH ×5 (05:45→23:03)
[2022-04-05] MEDS ORDERED: BUPRENORPHINE HCL 150 MCG, BUPRENORPHINE HCL 75 MCG BC PRN (10:04)
[2022-04-05] MEDS ORDERED: cloNIDine HCL 0.1 MG TABLET PO ONE (10:04)
[2022-04-05] MEDS ORDERED: BUPRENORPHINE HCL 150 MCG, BUPRENORPHINE HCL 75 MCG BC ONE (10:04)
[2022-04-05] MEDS: BACITRACIN 15 GM TUBE TOPICAL OINTMENT TP SCH ×2 (10:33→23:02)
[2022-04-05] MEDS: PRENATAL VITAMINS W/ FOLIC ACID TABLET (FP) PO SCH (10:33)
[2022-04-05] MEDS: FAMOTIDINE 20 MG TABLET PO SCH (10:33)
[2022-04-05] MEDS: METHOCARBAMOL 500 MG TABLET PO PRN (10:33)
[2022-04-05] MEDS: MONTELUKAST NA 10 MG TABLET PO SCH (22:48)
[2022-04-05] MEDS: diazePAM 5 MG TABLET PO PRN (22:48)
[2022-04-05] MEDS: MELATONIN 5 MG TABLETS PO SCH (23:02)
[2022-04-05] MEDS: THIAMINE HCL 100 MG TABLET (FP) PO SCH (23:03)
[2022-04-06] MEDS ORDERED: BUPRENORPHINE HCL 150 MCG, BUPRENORPHINE HCL 75 MCG BC PRN
[2022-04-06] MEDS: hydrOXYzine PAMOATE 25 MG CAPSULE (FP) PO SCH ×5 (05:47→23:19)
[2022-04-06] MEDS: BUPRENORPHINE HCL 150 MCG, BUPRENORPHINE HCL 75 MCG BC SCH ×2 (05:48→17:47)
[2022-04-06] MEDS: diazePAM 5 MG TABLET PO PRN ×2 (10:22→22:21)
[2022-04-06] MEDS: METHOCARBAMOL 500 MG TABLET PO PRN (10:23)
[2022-04-06] MEDS: PRENATAL VITAMINS W/ FOLIC ACID TABLET (FP) PO SCH (10:23)
[2022-04-06] MEDS: FAMOTIDINE 20 MG TABLET PO SCH (10:23)
[2022-04-06] MEDS: BACITRACIN 15 GM TUBE TOPICAL OINTMENT TP SCH ×2 (10:24→22:19)
[2022-04-06] MEDS: MONTELUKAST NA 10 MG TABLET PO SCH (22:19)
[2022-04-06] MEDS: MELATONIN 5 MG TABLETS PO SCH (22:19)
[2022-04-06] MEDS: THIAMINE HCL 100 MG TABLET (FP) PO SCH (22:19)
[2022-04-07] MEDS: hydrOXYzine PAMOATE 25 MG CAPSULE (FP) PO SCH ×5 (05:55→22:13)
[2022-04-07] MEDS: BUPRENORPHINE HCL 450 MCG FILM BC SCH ×2 (05:55→17:45)
[2022-04-07] MEDS: PRENATAL VITAMINS W/ FOLIC ACID TABLET (FP) PO SCH (10:07)
[2022-04-07] MEDS: METHOCARBAMOL 500 MG TABLET PO PRN (10:07)
[2022-04-07] MEDS: FAMOTIDINE 20 MG TABLET PO SCH (10:07)
[2022-04-07] MEDS: cloNIDine HCL 0.1 MG TABLET PO PRN ×3 (10:09→22:13)
[2022-04-07] MEDS: BACITRACIN 15 GM TUBE TOPICAL OINTMENT TP SCH ×2 (10:09→22:12)
[2022-04-07] MEDS: THIAMINE HCL 100 MG TABLET (FP) PO SCH (22:12)
[2022-04-07] MEDS: MONTELUKAST NA 10 MG TABLET PO SCH (22:13)
[2022-04-07] MEDS: MELATONIN 5 MG TABLETS PO SCH (22:14)
[2022-04-08] MEDS: hydrOXYzine PAMOATE 25 MG CAPSULE (FP) PO SCH ×5 (06:37→22:02)
[2022-04-08] MEDS: BUPRENORPHINE/NALOXONE 4 MG/1 MG FILM PACKET SL SCH ×2 (06:38→17:50)
[2022-04-08] MEDS: ONDANSETRON *ODT* 4 MG TABLET SL PRN (09:16)
[2022-04-08] MEDS: PRENATAL VITAMINS W/ FOLIC ACID TABLET (FP) PO SCH (10:16)
[2022-04-08] MEDS: FAMOTIDINE 20 MG TABLET PO SCH (10:16)
[2022-04-08] MEDS: BACITRACIN 15 GM TUBE TOPICAL OINTMENT TP SCH ×2 (10:16→22:02)
[2022-04-08] MEDS: METHOCARBAMOL 500 MG TABLET PO PRN ×2 (10:16→19:41)
[2022-04-08] MEDS: cloNIDine HCL 0.1 MG TABLET PO PRN ×2 (10:17→19:41)
[2022-04-08] MEDS: NICOTINE 10 MG CARTRIDGE (INHALER) IH PRN ×2 (12:43→17:45)
[2022-04-08] MEDS: THIAMINE HCL 100 MG TABLET (FP) PO SCH (22:02)
[2022-04-08] MEDS: MONTELUKAST NA 10 MG TABLET PO SCH (22:02)
[2022-04-08] MEDS: MELATONIN 5 MG TABLETS PO SCH (22:02)
[2022-04-09] MEDS: hydrOXYzine PAMOATE 25 MG CAPSULE (FP) PO SCH ×3 (05:33→13:18)
[2022-04-09] MEDS ORDERED: BUPRENORPHINE/NALOXONE 8 MG/2 MG FILM PACKET SL ONE (06:00)
[2022-04-09] MEDS: NICOTINE 10 MG CARTRIDGE (INHALER) IH PRN ×2 (06:53→10:27)
[2022-04-09] MEDS: METHOCARBAMOL 500 MG TABLET PO PRN (07:50)
[2022-04-09] MEDS: BACITRACIN 15 GM TUBE TOPICAL OINTMENT TP SCH (09:31)
[2022-04-09] MEDS: FAMOTIDINE 20 MG TABLET PO SCH (09:31)
[2022-04-09] MEDS: PRENATAL VITAMINS W/ FOLIC ACID TABLET (FP) PO SCH (09:31)
[2022-04-09] MEDS: ONDANSETRON *ODT* 4 MG TABLET SL PRN (10:28)
[2022-04-09 13:29] VITALS: BP 117/83; PULSE 92; RESP 16; TEMP 97
== END 2022-04-09 14:15 | disposition other institution (70) | DRG 773 ==
LOC: YASAS 09:46 → Y6N 12:05 → UNDOADMIN 12:05
PROVIDERS: ADMIT Allergy & Immunology; ATTEND Surgery
PROC: HZ2ZZZZ Detoxification Services for Substance Abuse Treatment (ICD-10-PCS; principal; 2022-04-04)
DX: F11.23 Opioid dependence with withdrawal (principal); F13.20 Sedative, hypnotic or anxiolytic dependence, uncomplicated; F14.20 Cocaine dependence, uncomplicated; F17.210 Nicotine dependence, cigarettes, uncomplicated; F31.9 Bipolar disorder, unspecified; F19.24 Other psychoactive substance dependence with psychoactive substance-induced mood disorder; J44.9 Chronic obstructive pulmonary disease, unspecified; Z86.19 Personal history of other infectious and parasitic diseases; Z28.311 Partially vaccinated for COVID-19; Z59.00 Homelessness unspecified; Z56.0 Unemployment, unspecified
CPT/HCPCS: 36415; 80053; 85027; 86780; C9803-CS; Q0162; U0003; U0005